=== PATIENT | female | born 1975 | race Caucasian/White ===

== ENCOUNTER 2017-08-10 19:09 | Emergency (ER) | payer OTHER ==
[2017-08-10] MEDS ORDERED: SODIUM CHLORIDE 0.9% 1,000 ML IV STA (21:53)
[2017-08-10] MEDS ORDERED: ONDANSETRON 4 MG/2 ML VIAL IVP STA (21:53)
[2017-08-10] MEDS ORDERED: KETOROLAC 30 MG/ML 1 ML VIAL IVP STA (21:53)
[2017-08-10] MEDS ORDERED: HYDROmorphone 2 MG/ML 1 ML SYRINGE IVP STA (21:53)
--- NOTE | 2017-08-10 21:56 | ED ---
General Adult HPI - General Chief complaint: Urogenital Stated complaint: Abdominal pain Time Seen by Provider: 08/10/17 21:40 Source: patient Mode of arrival: ambulatory Limitations: no limitations - History of Present Illness Initial comments: 42-year-old female patient presents to the emergency department today for evaluation of right flank and right lower quadrant abdominal pain. Patient states that she has had this pain for the last few hours. Patient states that she does have a known history of kidney stones and did pass 2 small stones proximal 0.3-4 days ago. States that she is pain-free for 2 days and started to have this pain here today. States that she is having decreased urine output. She denies any current hematuria. States that she is nauseated with this. States that she did take ibuprofen around 5 PM and this did not help her pain. States that she has increased her water and cranberry juice intake without relief of symptoms. Patient states that she does take Percocet for pain at home. Take she is taking probenecid to help decrease kidney stone production. Patient denies any recent rash, fever, chills, shortness breath, chest pain, vomiting, diarrhea, constipation, back pain, numbness, tingling, dizziness, weakness, dysuria, urinary urgency, urinary frequency, headache, visual changes, or any other complaints. - Related Data Home Medications Medication Instructions Recorded Confirmed ALPRAZolam [Xanax] 1 - 2 mg PO TID PRN 06/20/14 08/10/17 QUEtiapine [SEROquel] 25 mg PO HS 10/15/15 08/10/17 HYDROcodone/APAP 10-325MG [[place] 1 tab PO DIRECTED PRN 08/10/17 08/10/17 10-325] Ibuprofen [Motrin] 800 mg PO Q8H PRN 08/10/17 08/10/17 Probenecid [Benemid] 500 mg PO DAILY 08/10/17 08/10/17 oxyCODONE-APAP 10-325MG [Percocet 1 tab PO DIRECTED PRN 08/10/17 08/10/17 10-325 mg] Previous Rx's Medication Instructions Recorded Ondansetron [Zofran ODT] 4 mg PO Q8HR PRN #10 tab 08/10/17 Tamsulosin HCl [Flomax] 0.4 mg PO DAILY #7 cap 08/10/17 Allergies Allergy/AdvReac Type Severity Reaction Status Date / Time amoxicillin trihydrate Allergy Rash/Hives Verified 08/10/17 22:14 [From Trimox] grape Allergy Rash/Hives Verified 08/10/17 22:14 purple dye Allergy Rash/Hives Uncoded 08/10/17 19:52 root beer Allergy Rash/Hives Uncoded 08/10/17 19:52 Review of Systems ROS Statement: Those systems with pertinent positive or pertinent negative responses have been documented in the HPI. ROS Other: All systems not noted in ROS Statement are negative. Past Medical History Past Medical History: Cancer Additional Past Medical History / Comment(s): CERVICAL CANCER, MIGRAINE, HEAVY PERIODS, FREQUENT, kidney stones History of Any Multi-Drug Resistant Organisms: None Reported Past Surgical History: Tubal Ligation Additional Past Surgical History / Comment(s): CERVIX SURGERY FOR CANCER - LASER X3 Past Anesthesia/Blood Transfusion Reactions: No Reported Reaction Past Psychological History: Anxiety, Depression Smoking Status: Current some day smoker Past Alcohol Use History: None Reported Past Drug Use History: None Reported - Past Family History Mother Family Medical History: No Reported History General Exam Limitations: no limitations General appearance: alert, in no apparent distress, other (Physical well- developed, well-nourished adult female patient in no acute distress. Vital signs upon presentation are temperature 98.5F, pulse 97, respirations 20, blood pressure 130/97, pulse ox 98% on room air.) Eye exam: Present: normal appearance, PERRL, EOMI. Absent: scleral icterus, conjunctival injection, periorbital swelling ENT exam: Present: normal exam, normal oropharynx, mucous membranes moist Neck exam: Present: normal inspection. Absent: tenderness, meningismus, lymphadenopathy Respiratory exam: Present: normal lung sounds bilaterally. Absent: respiratory distress, wheezes, rales, rhonchi, stridor Cardiovascular Exam: Present: regular rate, normal rhythm, normal heart sounds. Absent: systolic murmur, diastolic murmur, rubs, gallop, clicks GI/Abdominal exam: Present: soft, normal bowel sounds. Absent: distended, tenderness, guarding, rebound, rigid Back exam: Present: normal inspection, CVA tenderness (R). Absent: CVA tenderness (L) Neurological exam: Present: alert, oriented X3, CN II-XII intact Psychiatric exam: Present: normal affect, normal mood Skin exam: Present: warm, dry, intact, normal color. Absent: rash Course Vital Signs 08/10/17 08/10/17 19:49 23:27 Temperature 98.5 F 98.8 F Pulse Rate 97 96 Respiratory 20 16 Rate Blood Pressure 138/97 133/90 O2 Sat by Pulse 98 100 Oximetry Medical Decision Making - Medical Decision Making 42-year-old female patient presents to the emergency department today for complaints of right flank pain. Patient does have a past medical history significant for kidney stones. She states this feels similar to her previous episodes. She states a couple days ago she passed 2 stones. Physical examination today reveals right flank tenderness, however no abdominal tenderness. Labs reviewed and did show mild elevation of the creatinine at 1.10. She did have trace blood in her urine. Findings are consistent with kidney stone. She'll be given a prescription for Flomax and Zofran. She does have Percocet at home to take. She is instructed to follow-up with urology and her primary care physician for recheck in 1-2 days. She is instructed to have a repeat CMP performed in 1-2 days. She is instructed to increase fluids. She is instructed to return here immediately for any new, worsening, or concerning symptoms. She verbalizes understanding and agrees with this plan. - Lab Data Result diagrams: 08/10/17 21:59 08/10/17 21:59 Lab Results 08/10/17 08/10/17 08/10/17 Range/Units 21:59 21:59 21:59 WBC 7.7 (3.8-10.6) k/uL RBC 3.91 (3.80-5.40) m/uL Hgb 12.9 (11.4-16.0) gm/dL Hct 37.7 (34.0-46.0) % MCV 96.4 (80.0-100.0) fL MCH 33.1 (25.0-35.0) pg MCHC 34.3 (31.0-37.0) g/dL RDW 13.2 (11.5-15.5) % Plt Count 292 (150-450) k/uL Neutrophils % 60 % Lymphocytes % 29 % Monocytes % 6 % Eosinophils % 3 % Basophils % 0 % Neutrophils # 4.6 (1.3-7.7) k/uL Lymphocytes # 2.2 (1.0-4.8) k/uL Monocytes # 0.5 (0-1.0) k/uL Eosinophils # 0.2 (0-0.7) k/uL Basophils # 0.0 (0-0.2) k/uL Sodium 140 (137-145) mmol/L Potassium 4.0 (3.5-5.1) mmol/L Chloride 105 (98-107) mmol/L Carbon Dioxide 25 (22-30) mmol/L Anion Gap 10 mmol/L BUN 13 (7-17) mg/dL Creatinine 1.10 H (0.52-1.04) mg/dL Est GFR (MDRD) Af Amer >60 (>60 ml/min/1.73 sqM) Est GFR (MDRD) Non-Af 55 (>60 ml/min/1.73 sqM) Glucose 88 (74-99) mg/dL Calcium 10.2 (8.4-10.2) mg/dL Total Bilirubin 0.3 (0.2-1.3) mg/dL AST 16 (14-36) U/L ALT 28 (9-52) U/L Alkaline Phosphatase 82 (38-126) U/L Total Protein 6.7 (6.3-8.2) g/dL Albumin 4.2 (3.5-5.0) g/dL Amylase 38 (30-110) U/L Lipase 102 (23-300) U/L Urine Color Colorless Urine Appearance Clear (Clear) Urine pH 7.0 (5.0-8.0) Ur Specific [place] 1.002 (1.001-1.035) Urine Protein Negative (Negative) Urine Glucose (UA) Negative (Negative) Urine Ketones Negative (Negative) Urine Blood Trace H (Negative) Urine Nitrite Negative (Negative) Urine Bilirubin Negative (Negative) Urine Urobilinogen <2.0 (<2.0) mg/dL Ur Leukocyte Esterase Negative (Negative) Urine WBC 1 (0-5) /hpf Ur Squamous Epith Cells <1 (0-4) /hpf Urine Mucus Rare H (None) /hpf - Radiology Data Radiology results: report reviewed, image reviewed 2 views of the abdomen showed no sign of intestinal obstruction or pneumoperitoneum. Fecal pattern is normal. Lung bases are clear. There are no pathologic calcifications over the right kidney. There is a small 2-3 mm calcifications over the lower pole of the left kidney. There is no evidence of a mass. Impression by Dr. Crouch shows possible left renal calcification. Nonacute abdomen. No change. Disposition Clinical Impression: Kidney stone Disposition: HOME SELF-CARE Condition: Good Instructions: Kidney Stones (ED) Additional Instructions: Return for repeat labs in 2-3 days. Increase fluids. Take medications as directed. Follow-up with your primary care physician and the urologist for further evaluation. Return here immediately for any new, worsening, or concerning symptoms. Prescriptions: Ondansetron [Zofran ODT] 4 mg PO Q8HR PRN #10 tab PRN Reason: Nausea Tamsulosin HCl [Flomax] 0.4 mg PO DAILY #7 cap Referrals: Luis Hernández DO [Primary Care Provider] - 1-2 days Justin Sommer MD [STAFF PHYSICIAN] - 1-2 days Time of Disposition: 23:15
[2017-08-10 22:26] LABS: Basophils % (A) 0 %; Eosinophils # (A) 0.2 k/uL (0-0.7); Eosinophils % (A) 3 %; HCT 37.7 % (34.0-46.0); HGB 12.9 gm/dL (11.4-16.0); Lymphocytes # (A) 2.2 k/uL (1.0-4.8); Lymphocytes % (A) 29 %; MCH 33.1 pg (25.0-35.0); MCHC 34.3 g/dL (31.0-37.0); MCV 96.4 fL (80.0-100.0); Mean Platelet Volume 7.8; Monocytes # (A) 0.5 k/uL (0-1.0); Monocytes % (A) 6 %; Neutrophils # (A) 4.6 k/uL (1.3-7.7); Neutrophils % (A) 60 %; Platelet Count 292 k/uL (150-450); RBC 3.91 m/uL (3.80-5.40); RDW 13.2 % (11.5-15.5); WBC 7.7 k/uL (3.8-10.6)
[2017-08-10 22:32] LABS: Appearance,Urine Clear (Clear); Bilirubin,Urine Negative (Negative); Blood,Urine Trace (Negative); Color,Urine Colorless; Glucose,Urine (UA) Negative (Negative); Ketones,Urine Negative (Negative); Leukocyte Esterase,Urine Negative (Negative); Mucus,Urine Rare /hpf; Nitrite,Urine Negative (Negative); Protein,Urine Negative (Negative); Specific Gravity,Urine 1.002 (1.001-1.035); Squamous Epithelial Cell,Urine <1 /hpf (0-4); Urobilinogen,Urine <2.0 mg/dL (<2.0); WBC,Urine 1 /hpf (0-5)
--- NOTE | 2017-08-10 22:35 | XR ---
EXAMINATION TYPE: XR KUB DATE OF EXAM: 08/10/2017 COMPARISON: 08/15/2015 HISTORY: Abdominal pain TECHNIQUE: 2 views FINDINGS: There is no sign of intestinal obstruction or pneumoperitoneum. Fecal pattern is normal. Madhuri ng bases are clear. There are no pathologic calcifications over the right kidney. There is small 2 to 3 mm calcification over lower pole left kidney. There is no evidence of a mass. IMPRESSION: Possible left renal calcification. Nonacute abdomen. No change.
[2017-08-10 22:37] LABS: ALT 28 U/L (9-52); AST 16 U/L (14-36); Albumin 4.2 g/dL (3.5-5.0); Alkaline Phosphatase 82 U/L (38-126); Amylase 38 U/L (30-110); Anion Gap 10 mmol/L; Blood Urea Nitrogen 13 mg/dL (7-17); Calcium 10.2 mg/dL (8.4-10.2); Carbon Dioxide 25 mmol/L (22-30); Chloride 105 mmol/L (98-107); Glucose 88 mg/dL (74-99); Lipase 102 U/L (23-300); Sodium 140 mmol/L (137-145); Total Bilirubin 0.3 mg/dL (0.2-1.3); Total Protein 6.7 g/dL (6.3-8.2)
[2017-08-10 23:28] VITALS: BP 133/90; PULSE 96; RESP 16; TEMP 98.8
== END 2017-08-10 23:28 | disposition home or self-care (01) ==
LOC: EC 19:09
DX: N20.0 Calculus of kidney (principal); F32.9 Major depressive disorder, single episode, unspecified; F17.200 Nicotine dependence, unspecified, uncomplicated; Z79.899 Other long term (current) drug therapy; Z88.0 Allergy status to penicillin; Z91.018 Allergy to other foods; Z91.048 Other nonmedicinal substance allergy status; Z85.41 Personal history of malignant neoplasm of cervix uteri; Z98.890 Other specified postprocedural states
CPT/HCPCS: 36415; 80053; 82150; 83690; 85025; 81001; 74018; 99284; 96374; 96375 ×2; 96361; J1170; J2405; J1885

== ENCOUNTER → 2017-08-12 | Outpatient (CLI) | payer OTHER ==
[2017-08-12 13:29] LABS: Blood Urea Nitrogen 9 mg/dL (7-17)
== END | disposition home or self-care (01) ==
LOC: LABWHC1 12:46
PROVIDERS: ATTEND Nurse Practitioner
DX: R10.9 Unspecified abdominal pain (principal)
CPT/HCPCS: 36415; 82565; 84520

== ENCOUNTER → 2017-09-08 | Outpatient (CLI) | payer OTHER ==
--- NOTE | 2017-09-08 12:01 | CT ---
EXAMINATION TYPE: CT abdomen pelvis wo con DATE OF EXAM: 09/08/2017 COMPARISON: 11/25/2015 HISTORY: Flank pain bilaterally left greater than right CT DLP: 234.4 mGycm Automated exposure control for dose reduction was used. TECHNIQUE: Helical acquisition of images was performed from the lung bases through the pelvis. FINDINGS: LUNG BASES: No significant abnormality is appreciated. LIVER/GB: No significant abnormality is appreciated. No radiopaque calculi. PANCREAS: No significant abnormality is seen. No ductal dilatation. SPLEEN: No significant abnormality is seen. No splenomegaly. ADRENALS: No significant abnormality is seen. No thickening or nodularity. KIDNEYS: There are at least 3 1 to 2 mm right renal calculi and at least 3 1 to 2 mm left upper pole renal calculi as well as left lower pole 6 mm calculus and 2 mm calculus. There is no evidence of hyd ronephrosis or calculi within the course of the ureters or within the urinary bladder. No calculi are seen along the course of the urethra. 2.0 cm left renal cyst is again noted. The previously seen 4 mm calculus at the left ureter vesicular junction has passed in the interim. FREE AIR: No free air is visualized REPRODUCTIVE ORGANS: The uterus appears surgically absent. URINARY BLADDER: No significant abnormality is seen. Incompletely distended. ADENOPATHY: No greater than 1 cm short axis lymph nodes are seen within the abdomen or pelvis. OSSEOUS STRUCTURES: Punctate sclerotic foci are seen within the left femoral head and ischium, likel y bone islands. Osseous structures appear intact. BOWEL: Numerous colonic diverticula are seen without pericolonic fat stranding. No evidence of focal bowel dilatation. IMPRESSION: 1. INTERVAL PASSAGE OF THE PREVIOUSLY SEEN OBSTRUCTING LEFT URETERAL CALCULUS JUNCTION. NO CURRENT EV IDENCE OF HYDRONEPHROSIS OR OBSTRUCTIVE UROPATHY. 2. BILATERAL NONOBSTRUCTING RENAL CALCULI. 3. LEFT RENAL CYST.
== END | disposition home or self-care (01) ==
LOC: RADCTMAIN 08:56
PROVIDERS: ATTEND Urology
DX: N20.2 Calculus of kidney with calculus of ureter (principal); N28.1 Cyst of kidney, acquired
CPT/HCPCS: 74176

== ENCOUNTER 2018-07-17 15:40 | Emergency (ER) | payer OTHER ==
[2018-07-17] MEDS ORDERED: SODIUM CHLORIDE 0.9% 1,000 ML IV STA (15:58)
[2018-07-17] MEDS ORDERED: KETOROLAC 30 MG/ML 1 ML VIAL IVP STA (15:58)
[2018-07-17] MEDS ORDERED: METOCLOPRAMIDE 5 MG/ML 2 ML VIAL IVP STA (15:58)
--- NOTE | 2018-07-17 16:00 | ED ---
General Adult HPI - General Chief complaint: Abdominal Pain Stated complaint: Abd pain Time Seen by Provider: 07/17/18 15:52 Source: patient, family, RN notes reviewed Mode of arrival: wheelchair Limitations: no limitations - History of Present Illness Initial comments: Patient is a pleasant 43-year-old female presenting to the emergency Department with complaints of right flank pain. Onset of symptoms was last night. Symptoms worsened around 9:30 this morning. Discomfort is starting to become severe. Discomfort is right side of the abdomen, more lower. Patient has had similar symptoms multiple times previously associated with kidney stones. Patient usually gets kidney stones around once a year. No dysuria or hematuria. Patient has had some mild loose stools. No constipation. Patient has had some nausea without vomiting. No fever. - Related Data Home Medications Medication Instructions Recorded Confirmed ALPRAZolam [Xanax] 1 - 2 mg PO TID PRN 06/20/14 07/17/18 Ibuprofen [Motrin] 800 mg PO Q8H PRN 08/10/17 07/17/18 Ascorbic Acid [Vitamin C] 1,000 mg PO DAILY 07/17/18 07/17/18 Cider Vinegar [Apple Cider Vinegar] 1 tab PO DAILY 07/17/18 07/17/18 Cyanocobalamin (Vitamin B-12) 1,000 mcg PO DAILY 07/17/18 07/17/18 [Vitamin B-12] Dextroamphetamine/Amphetamine 20 mg PO BID 07/17/18 07/17/18 [Dextroamp-Amphetamin 20 mg Tab] Garcinia Cambogia 1 tab PO DAILY 07/17/18 07/17/18 Allergies Allergy/AdvReac Type Severity Reaction Status Date / Time amoxicillin trihydrate Allergy Rash/Hives Verified 07/17/18 16:10 [From Trimox] grape Allergy Rash/Hives Verified 07/17/18 16:10 purple dye Allergy Rash/Hives Uncoded 07/17/18 15:47 root beer Allergy Rash/Hives Uncoded 07/17/18 15:47 Review of Systems ROS Statement: Those systems with pertinent positive or pertinent negative responses have been documented in the HPI. ROS Other: All systems not noted in ROS Statement are negative. Constitutional: Denies: fever, chills Eyes: Denies: eye pain ENT: Denies: ear pain Respiratory: Denies: cough Cardiovascular: Denies: chest pain Endocrine: Denies: fatigue Gastrointestinal: Reports: abdominal pain, nausea. Denies: vomiting Genitourinary: Denies: dysuria, hematuria Musculoskeletal: Denies: arthralgia Skin: Denies: rash Neurological: Denies: weakness Past Medical History Past Medical History: Cancer Additional Past Medical History / Comment(s): CERVICAL CANCER, MIGRAINE, HEAVY PERIODS, FREQUENT, kidney stones History of Any Multi-Drug Resistant Organisms: None Reported Past Surgical History: Tubal Ligation Additional Past Surgical History / Comment(s): CERVIX SURGERY FOR CANCER - LASER X3 Past Anesthesia/Blood Transfusion Reactions: No Reported Reaction Past Psychological History: Anxiety, Depression Smoking Status: Current every day smoker Past Alcohol Use History: None Reported Past Drug Use History: None Reported - Past Family History Mother Family Medical History: No Reported History General Exam Limitations: no limitations General appearance: alert, in no apparent distress Head exam: Present: atraumatic Eye exam: Present: normal appearance, PERRL ENT exam: Present: normal oropharynx Neck exam: Present: normal inspection Respiratory exam: Present: normal lung sounds bilaterally Cardiovascular Exam: Present: regular rate, normal rhythm Expanded Peripheral pulses: 2+: Dorsalis Pedis (R), Dorsalis Pedis (L) GI/Abdominal exam: Present: soft, tenderness (Moderate tenderness right side of the abdomen), normal bowel sounds. Absent: distended, rebound, rigid, pulsatile mass Extremities exam: Present: normal inspection. Absent: pedal edema, calf tenderness Back exam: Present: CVA tenderness (R) Neurological exam: Present: alert Psychiatric exam: Present: normal affect, normal mood Skin exam: Present: normal color Course Vital Signs 07/17/18 15:44 Temperature 97.7 F Pulse Rate 64 Respiratory 20 Rate Blood Pressure 132/68 O2 Sat by Pulse 99 Oximetry Medical Decision Making - Medical Decision Making Patient reevaluated and resting comfortably in bed. Patient states discomfort is only very mild at this time. Patient updated on results and need for follow- up. - Lab Data Result diagrams: 07/17/18 16:45 07/17/18 16:45 Lab Results 07/17/18 07/17/18 07/17/18 Range/Units 16:45 16:45 16:45 WBC 11.2 H (3.8-10.6) k/uL RBC 3.72 L (3.80-5.40) m/uL Hgb 12.7 (11.4-16.0) gm/dL Hct 37.0 (34.0-46.0) % MCV 99.6 (80.0-100.0) fL MCH 34.1 (25.0-35.0) pg MCHC 34.3 (31.0-37.0) g/dL RDW 12.5 (11.5-15.5) % Plt Count 279 (150-450) k/uL Neutrophils % 79 % Lymphocytes % 15 % Monocytes % 4 % Eosinophils % 1 % Basophils % 0 % Neutrophils # 8.9 H (1.3-7.7) k/uL Lymphocytes # 1.7 (1.0-4.8) k/uL Monocytes # 0.4 (0-1.0) k/uL Eosinophils # 0.1 (0-0.7) k/uL Basophils # 0.0 (0-0.2) k/uL PT 10.2 (9.0-12.0) sec INR 0.9 (<1.2) APTT 26.4 (22.0-30.0) sec Sodium 140 (137-145) mmol/L Potassium 3.7 (3.5-5.1) mmol/L Chloride 106 (98-107) mmol/L Carbon Dioxide 27 (22-30) mmol/L Anion Gap 7 mmol/L BUN 7 (7-17) mg/dL Creatinine 0.63 (0.52-1.04) mg/dL Est GFR (CKD-EPI)AfAm >90 (>60 ml/min/1.73 sqM) Est GFR (CKD-EPI)NonAf >90 (>60 ml/min/1.73 sqM) Glucose 92 (74-99) mg/dL Calcium 9.9 (8.4-10.2) mg/dL Total Bilirubin 0.3 (0.2-1.3) mg/dL AST 14 (14-36) U/L ALT 21 (9-52) U/L Alkaline Phosphatase 100 (38-126) U/L Total Protein 6.5 (6.3-8.2) g/dL Albumin 4.0 (3.5-5.0) g/dL Amylase 35 (30-110) U/L Lipase 68 (23-300) U/L - Radiology Data Radiology results: report reviewed (Computed tomography scan of abdomen and pelvis shows probable distal ureteral calculi. Moderate right-sided hydronephrosis and hydroureter), image reviewed (KUB shows no acute process) Disposition Clinical Impression: Ureterolithiasis Disposition: HOME SELF-CARE Condition: Stable Instructions: Kidney Stones (ED) Additional Instructions: Please follow-up with primary care physician in the next couple of days for recheck. Return for increased pain, fevers, worsening or change in symptoms, or other concerns. Is patient prescribed a controlled substance at d/c from ED?: No Referrals: Luis Hernández DO [Primary Care Provider] - 1-2 days Time of Disposition: 18:01
[2018-07-17 17:20] LABS: Basophils % (A) 0 %; Eosinophils # (A) 0.1 k/uL (0-0.7); Eosinophils % (A) 1 %; HGB 12.7 gm/dL (11.4-16.0); Lymphocytes # (A) 1.7 k/uL (1.0-4.8); Lymphocytes % (A) 15 %; MCH 34.1 pg (25.0-35.0); MCHC 34.3 g/dL (31.0-37.0); MCV 99.6 fL (80.0-100.0); Mean Platelet Volume 6.9; Monocytes # (A) 0.4 k/uL (0-1.0); Monocytes % (A) 4 %; Neutrophils # (A) 8.9 k/uL (1.3-7.7); Neutrophils % (A) 79 %; Platelet Count 279 k/uL (150-450); RBC 3.72 m/uL (3.80-5.40); RDW 12.5 % (11.5-15.5); WBC 11.2 k/uL (3.8-10.6)
--- NOTE | 2018-07-17 17:26 | XR ---
EXAMINATION TYPE: XR KUB DATE OF EXAM: 07/17/2018 COMPARISON: 08/10/2017 HISTORY: Abdominal pain TECHNIQUE: 2 views upright FINDINGS: There is no sign of intestinal obstruction or pneumoperitoneum. Fecal pattern is normal. Madhuri ng bases are clear. There are small calcifications over the lower pole left kidney IMPRESSION: Nonacute abdomen. Small calcifications over the lower pole left kidney unchanged.
--- NOTE | 2018-07-17 17:35 | CT ---
EXAMINATION TYPE: CT abdomen pelvis wo con DATE OF EXAM: 07/17/2018 COMPARISON: 09/08/2017 HISTORY: Right flank pain, hx of kidney stones CT DLP: 269.3 mGycm Automated exposure control for dose reduction was used. TECHNIQUE: Helical acquisition of images was performed from the lung bases through the pelvis. FINDINGS: Lung bases are clear of infiltrate. There is no pleural effusion. Heart size is normal. There is no p ericardial effusion. Liver spleen pancreas gallbladder appear normal. Bile ducts are not dilated. There is no adrenal mass . Kidneys of normal size. There is moderate right-sided hydronephrosis. There are multiple bilateral renal calculi. These measure up to 6 mm. There is 2 cm cortical cyst anterior left kidney. There is 2 cm cortical cyst lower pole left kidney. There is right-sided hydroureter. There are multiple calcif ications in the pelvis laterally on the right side. Most of these are phleboliths. There is probably a stone in the distal right ureter. evaluation of the right ureter is difficult with lack of contr ast and intraperitoneal fat.. There are phleboliths in the pelvis. The lumbar spine is intact. Bony pelvis is intact. there is no evidence of a bowel obstruction. There is no inguinal hernia. There is no evidence of a pelvic mass. There is no mesenteric edema or a denopathy. IMPRESSION: THERE IS MODERATE RIGHT-SIDED HYDRONEPHROSIS AND HYDROURETER. THERE IS PROBABLY OBSTRUCTING STONE IN THE DISTAL RIGHT URETER. OBSTRUCTION IS NEW COMPARED TO OLD EXAM. NUMEROUS BILATERAL RENAL CALCULI.
[2018-07-17 17:39] LABS: ALT 21 U/L (9-52); AST 14 U/L (14-36); Alkaline Phosphatase 100 U/L (38-126); Amylase 35 U/L (30-110); Anion Gap 7 mmol/L; Blood Urea Nitrogen 7 mg/dL (7-17); Calcium 9.9 mg/dL (8.4-10.2); Carbon Dioxide 27 mmol/L (22-30); Chloride 106 mmol/L (98-107); Glucose 92 mg/dL (74-99); Lipase 68 U/L (23-300); Potassium 3.7 mmol/L (3.5-5.1); Sodium 140 mmol/L (137-145); Total Bilirubin 0.3 mg/dL (0.2-1.3); Total Protein 6.5 g/dL (6.3-8.2)
[2018-07-17 17:43] LABS: INR 0.9 (<1.2); Partial Thromboplastin Time 26.4 sec (22.0-30.0); Prothrombin Time 10.2 sec (9.0-12.0)
[2018-07-17 18:18] VITALS: BP 126/79; PULSE 62; RESP 18; TEMP 98.5
[2018-07-17 18:38] LABS: Amorphous Sediment,Urine Rare /hpf; Appearance,Urine Cloudy (Clear); Bacteria,Urine Many /hpf; Bilirubin,Urine Negative (Negative); Blood,Urine Moderate (Negative); Color,Urine Yellow; Glucose,Urine (UA) Negative (Negative); Ketones,Urine Negative (Negative); Leukocyte Esterase,Urine Large (Negative); Mucus,Urine Few /hpf; Nitrite,Urine Positive (Negative); PH, Urine 6.5 (5.0-8.0); Protein,Urine Trace (Negative); RBC,Urine 81 /hpf (0-5); Squamous Epithelial Cell,Urine 2 /hpf (0-4); Urobilinogen,Urine <2.0 mg/dL (<2.0); WBC,Urine 64 /hpf (0-5)
== END 2018-07-17 18:08 | disposition home or self-care (01) ==
LOC: EC 15:40
DX: N20.1 Calculus of ureter (principal); R19.5 Other fecal abnormalities; F32.9 Major depressive disorder, single episode, unspecified; F41.9 Anxiety disorder, unspecified; F17.200 Nicotine dependence, unspecified, uncomplicated; Z85.41 Personal history of malignant neoplasm of cervix uteri; Z79.899 Other long term (current) drug therapy; Z88.0 Allergy status to penicillin; Z91.018 Allergy to other foods; Z91.09 Other allergy status, other than to drugs and biological substances
CPT/HCPCS: 36415; 80053; 82150; 83690; 85025; 85610; 85730; 81001; 74018; 74176; 99284; 96374; 96375; 96361; J2765; J1885

== ENCOUNTER 2018-07-23 14:35 | Emergency (ER) | payer OTHER ==
[2018-07-23 15:54] LABS: Appearance,Urine Cloudy (Clear); Color,Urine Yellow
[2018-07-23 15:55] LABS: Bacteria,Urine Many /hpf; Bilirubin,Urine Negative (Negative); Blood,Urine Large (Negative); Budding Yeast,Urine Few /hpf; Glucose,Urine (UA) Negative (Negative); Ketones,Urine 1+ (Negative); Leukocyte Esterase,Urine Large (Negative); Mucus,Urine Rare /hpf; Nitrite,Urine Positive (Negative); Protein,Urine 2+ (Negative); RBC,Urine 134 /hpf (0-5); Specific Gravity,Urine 1.011 (1.001-1.035); WBC,Urine 55 /hpf (0-5)
[2018-07-23] MEDS ORDERED: PANTOPRAZOLE 40 MG/10 ML VIAL IVP STA (16:00)
[2018-07-23] MEDS ORDERED: SODIUM CHLORIDE 0.9% 500 ML 500 ML IV STA (16:00)
[2018-07-23] MEDS ORDERED: HYDROmorphone 1 MG/ML 1 ML SYRINGE IVP STA (16:00)
[2018-07-23] MEDS ORDERED: SODIUM CHLORIDE 0.9% 1,000 ML IV STA ×2 (16:00)
[2018-07-23] MEDS ORDERED: ONDANSETRON 4 MG/2 ML VIAL IVP STA (16:00)
[2018-07-23] MEDS ORDERED: KETOROLAC 30 MG/ML 1 ML VIAL IVP STA (16:00)
--- NOTE | 2018-07-23 16:17 | ED ---
Abdominal Pain HPI - General Chief Complaint: Back Pain/Injury Stated Complaint: Kidney stones Time Seen by Provider: 07/23/18 15:21 Source: patient, RN notes reviewed, old records reviewed Mode of arrival: wheelchair Limitations: no limitations - History of Present Illness Initial Comments: This is a 43-year-old female the ER for evaluation. Patient has no history of kidney stones coming of kidney stones and pain flank pain nausea and vomiting. Abdominal pain. Dysuria as well as hematuria. Patient again states she has history of kidney stones. This seen multiple times for recent evaluation of stones. Patient states she did just. Passes to upon arrival to the hospital. Denies any other complaints MD Complaint: abdominal pain, flank pain (Right flank pain) -: days(s) Location: RLQ, R flank Radiation: RLQ, back Migration to: suprapubic Severity: moderate Severity scale (1-10): 7 Quality: sharp Consistency: constant Improves With: medication Worsens With: nothing Associated Symptoms: nausea, vomiting Treatments Prior to Arrival: NSAIDs, prescription analgesics - Related Data Home Medications Medication Instructions Recorded Confirmed ALPRAZolam [Xanax] 2 mg PO TID PRN 06/20/14 07/23/18 Dextroamphetamine/Amphetamine 20 mg PO BID 07/17/18 07/23/18 [Dextroamp-Amphetamin 20 mg Tab] Allergies Allergy/AdvReac Type Severity Reaction Status Date / Time amoxicillin trihydrate Allergy Rash/Hives Verified 07/23/18 15:26 [From Trimox] grape Allergy Rash/Hives Verified 07/23/18 15:26 purple dye Allergy Rash/Hives Uncoded 07/23/18 14:53 root beer Allergy Rash/Hives Uncoded 07/23/18 14:53 Review of Systems ROS Statement: Those systems with pertinent positive or pertinent negative responses have been documented in the HPI. ROS Other: All systems not noted in ROS Statement are negative. Past Medical History Past Medical History: Cancer Additional Past Medical History / Comment(s): CERVICAL CANCER, MIGRAINE, HEAVY PERIODS, FREQUENT, kidney stones History of Any Multi-Drug Resistant Organisms: None Reported Past Surgical History: Tubal Ligation Additional Past Surgical History / Comment(s): CERVIX SURGERY FOR CANCER - LASER X3 Past Anesthesia/Blood Transfusion Reactions: No Reported Reaction Past Psychological History: Anxiety, Depression Smoking Status: Current every day smoker Past Alcohol Use History: None Reported Past Drug Use History: None Reported - Past Family History Mother Family Medical History: No Reported History General Exam Limitations: no limitations General appearance: alert, in no apparent distress, anxious Head exam: Present: atraumatic, normocephalic, normal inspection Eye exam: Present: normal appearance, PERRL, EOMI. Absent: scleral icterus, conjunctival injection, periorbital swelling ENT exam: Present: normal exam, mucous membranes moist Neck exam: Present: normal inspection. Absent: tenderness, meningismus, lymphadenopathy Respiratory exam: Present: normal lung sounds bilaterally. Absent: respiratory distress, wheezes, rales, rhonchi, stridor Cardiovascular Exam: Present: regular rate, normal rhythm, normal heart sounds. Absent: systolic murmur, diastolic murmur, rubs, gallop, clicks GI/Abdominal exam: Present: soft, normal bowel sounds. Absent: distended, tenderness, guarding, rebound, rigid Extremities exam: Present: normal inspection, full ROM, normal capillary refill. Absent: tenderness, pedal edema, joint swelling, calf tenderness Back exam: Present: normal inspection Neurological exam: Present: alert, oriented X3, CN II-XII intact Psychiatric exam: Present: normal affect, normal mood Skin exam: Present: warm, dry, intact, normal color. Absent: rash Course Vital Signs 07/23/18 07/23/18 07/23/18 14:49 16:33 17:50 Temperature 99.8 F H Pulse Rate 124 H 87 84 Respiratory 20 18 18 Rate Blood Pressure 159/93 106/68 105/64 O2 Sat by Pulse 99 98 98 Oximetry - Reevaluation(s) Reevaluation #1: 07/23/18 18:36 Medical record is reviewed Reevaluation #2: 07/23/18 18:36 Patient has adequate pain control currently spoke at length with need to take antibiotics, patient agreeable, patient can be discharged home Medical Decision Making - Medical Decision Making 43 female the ER for evaluation. Patient was essay for evaluation of pain flank pain. Patient has positive UTI pyelonephritis likely, no fever no white count patient is tolerate oral intake and can be discharged home - Lab Data Result diagrams: 07/23/18 16:25 07/23/18 16:25 Lab Results 07/23/18 07/23/18 07/23/18 Range/Units 15:15 15:15 16:25 WBC (3.8-10.6) k/uL RBC (3.80-5.40) m/uL Hgb (11.4-16.0) gm/dL Hct (34.0-46.0) % MCV (80.0-100.0) fL MCH (25.0-35.0) pg MCHC (31.0-37.0) g/dL RDW (11.5-15.5) % Plt Count (150-450) k/uL Neutrophils % % Lymphocytes % % Monocytes % % Eosinophils % % Basophils % % Neutrophils # (1.3-7.7) k/uL Lymphocytes # (1.0-4.8) k/uL Monocytes # (0-1.0) k/uL Eosinophils # (0-0.7) k/uL Basophils # (0-0.2) k/uL Sodium 131 L (137-145) mmol/L Potassium 2.9 L (3.5-5.1) mmol/L Chloride 102 (98-107) mmol/L Carbon Dioxide 22 (22-30) mmol/L Anion Gap 7 mmol/L BUN 18 H (7-17) mg/dL Creatinine 0.79 (0.52-1.04) mg/dL Est GFR (CKD-EPI)AfAm >90 (>60 ml/min/1.73 sqM) Est GFR (CKD-EPI)NonAf >90 (>60 ml/min/1.73 sqM) Glucose 104 H (74-99) mg/dL Calcium 8.7 (8.4-10.2) mg/dL Magnesium (1.6-2.3) mg/dL Total Bilirubin 1.3 (0.2-1.3) mg/dL AST 19 (14-36) U/L ALT 27 (9-52) U/L Alkaline Phosphatase 99 (38-126) U/L Total Protein 5.4 L (6.3-8.2) g/dL Albumin 2.8 L (3.5-5.0) g/dL Amylase <30 L (30-110) U/L Lipase 61 (23-300) U/L Urine Color Yellow Urine Appearance Cloudy H (Clear) Urine pH 7.0 (5.0-8.0) Ur Specific [place] 1.011 (1.001-1.035) Urine Protein 2+ H (Negative) Urine Glucose (UA) Negative (Negative) Urine Ketones 1+ H (Negative) Urine Blood Large H (Negative) Urine Nitrite Positive H (Negative) Urine Bilirubin Negative (Negative) Urine Urobilinogen 8.0 (<2.0) mg/dL Ur Leukocyte Esterase Large H (Negative) Urine RBC 134 H (0-5) /hpf Urine WBC 55 H (0-5) /hpf Urine WBC Clumps Moderate H (None) /hpf Urine Bacteria Many H (None) /hpf Urine Mucus Rare H (None) /hpf Urine Yeast (Budding) Few H (None) /hpf Urine HCG, Qual Not Detected (Not Detectd) 07/23/18 07/23/18 Range/Units 16:25 16:25 WBC 9.0 (3.8-10.6) k/uL RBC 3.72 L (3.80-5.40) m/uL Hgb 12.3 (11.4-16.0) gm/dL Hct 35.8 (34.0-46.0) % MCV 96.2 (80.0-100.0) fL MCH 33.1 (25.0-35.0) pg MCHC 34.4 (31.0-37.0) g/dL RDW 12.6 (11.5-15.5) % Plt Count 122 L D (150-450) k/uL Neutrophils % 91 % Lymphocytes % 4 % Monocytes % 3 % Eosinophils % 1 % Basophils % 0 % Neutrophils # 8.2 H (1.3-7.7) k/uL Lymphocytes # 0.4 L (1.0-4.8) k/uL Monocytes # 0.3 (0-1.0) k/uL Eosinophils # 0.1 (0-0.7) k/uL Basophils # 0.0 (0-0.2) k/uL Sodium (137-145) mmol/L Potassium (3.5-5.1) mmol/L Chloride (98-107) mmol/L Carbon Dioxide (22-30) mmol/L Anion Gap mmol/L BUN (7-17) mg/dL Creatinine (0.52-1.04) mg/dL Est GFR (CKD-EPI)AfAm (>60 ml/min/1.73 sqM) Est GFR (CKD-EPI)NonAf (>60 ml/min/1.73 sqM) Glucose (74-99) mg/dL Calcium (8.4-10.2) mg/dL Magnesium 1.6 (1.6-2.3) mg/dL Total Bilirubin (0.2-1.3) mg/dL AST (14-36) U/L ALT (9-52) U/L Alkaline Phosphatase (38-126) U/L Total Protein (6.3-8.2) g/dL Albumin (3.5-5.0) g/dL Amylase (30-110) U/L Lipase (23-300) U/L Urine Color Urine Appearance (Clear) Urine pH (5.0-8.0) Ur Specific [place] (1.001-1.035) Urine Protein (Negative) Urine Glucose (UA) (Negative) Urine Ketones (Negative) Urine Blood (Negative) Urine Nitrite (Negative) Urine Bilirubin (Negative) Urine Urobilinogen (<2.0) mg/dL Ur Leukocyte Esterase (Negative) Urine RBC (0-5) /hpf Urine WBC (0-5) /hpf Urine WBC Clumps (None) /hpf Urine Bacteria (None) /hpf Urine Mucus (None) /hpf Urine Yeast (Budding) (None) /hpf Urine HCG, Qual (Not Detectd) - Radiology Data Radiology results: report reviewed (KUB is negative for acute disease, ultrasound renals of bladder shows no obstruction), image reviewed Disposition Clinical Impression: UTI (urinary tract infection), Pyelonephritis Disposition: HOME SELF-CARE Condition: Good Instructions: Urinary Tract Infection in Women (ED) Is patient prescribed a controlled substance at d/c from ED?: No Referrals: Luis Hernández DO [Primary Care Provider] - 1-2 days
[2018-07-23 16:51] LABS: ALT 27 U/L (9-52); AST 19 U/L (14-36); Albumin 2.8 g/dL (3.5-5.0); Alkaline Phosphatase 99 U/L (38-126); Amylase <30 U/L (30-110); Anion Gap 7 mmol/L; Blood Urea Nitrogen 18 mg/dL (7-17); Calcium 8.7 mg/dL (8.4-10.2); Carbon Dioxide 22 mmol/L (22-30); Chloride 102 mmol/L (98-107); Glucose 104 mg/dL (74-99); Lipase 61 U/L (23-300); Potassium 2.9 mmol/L (3.5-5.1); Sodium 131 mmol/L (137-145); Total Bilirubin 1.3 mg/dL (0.2-1.3); Total Protein 5.4 g/dL (6.3-8.2)
--- NOTE | 2018-07-23 16:53 | XR ---
EXAMINATION TYPE: XR KUB DATE OF EXAM: 07/23/2018 COMPARISON: 07/17/2018 HISTORY: Abdominal pain TECHNIQUE: Single view upright FINDINGS: There is no sign of intestinal obstruction or pneumoperitoneum. Fecal pattern is normal. Madhuri ng bases are clear. There are no pathologic calcifications. Bony structures appear intact. IMPRESSION: Nonacute abdomen. No change.
[2018-07-23 16:54] LABS: Basophils % (A) 0 %; Eosinophils # (A) 0.1 k/uL (0-0.7); Eosinophils % (A) 1 %; HCT 35.8 % (34.0-46.0); HGB 12.3 gm/dL (11.4-16.0); Lymphocytes # (A) 0.4 k/uL (1.0-4.8); Lymphocytes % (A) 4 %; MCH 33.1 pg (25.0-35.0); MCHC 34.4 g/dL (31.0-37.0); MCV 96.2 fL (80.0-100.0); Mean Platelet Volume 7.9; Monocytes # (A) 0.3 k/uL (0-1.0); Monocytes % (A) 3 %; Neutrophils # (A) 8.2 k/uL (1.3-7.7); Neutrophils % (A) 91 %; RBC 3.72 m/uL (3.80-5.40); RDW 12.6 % (11.5-15.5)
[2018-07-23 17:03] LABS: Platelet Count 122 k/uL (150-450)
[2018-07-23] MEDS ORDERED: POTASSIUM BICARBONATE/CIT AC 20 MEQ TABLET.EFF PO ONE (17:08)
--- NOTE | 2018-07-23 17:42 | US ---
EXAMINATION TYPE: US renals and bladder DATE OF EXAM: 07/23/2018 COMPARISON: NONE CLINICAL HISTORY: Pain. EXAM MEASUREMENTS: Right Kidney: 13.7 x 6.1 x 6.0 cm Left Kidney: 12.2 x 5.0 x 5.4 cm Right Kidney: some possible ff vs small cyst, multiple kidney stones largest measuring 0.3 x 0.3 x 0. 3cm Left Kidney: multiple kidney stones, irregular shaped cyst measuring 2.3 x 2.1 x 2.3cm and 1.5 x 1.2 x 1.3 Bladder: not visualized, not distended There is no evidence for hydronephrosis at this point in time. No nephrolithiasis is seen. No ericka s are identified. The urinary bladder is anechoic. Bilateral ureteral jets are seen. IMPRESSION: Nonobstructing multiple small calculi in both kidneys. Simple left renal cortical cysts. No renal obstruction seen.
[2018-07-23] MEDS ORDERED: cefTRIAXone 2,000 MG in SODIUM CHLORIDE 0.9% 100 ML IVPB STA (18:28)
[2018-07-23] MEDS ORDERED: Acetaminophen-Codeine 300-30mg TAB PO STA (18:37)
[2018-07-23] MEDS ORDERED: ACET/COD 300 MG/30 MG STARTER PACK 6 TAB BTL PO STA (18:37)
[2018-07-23 20:07] VITALS: BP 94/72; PULSE 77; RESP 19; TEMP 97.9
== END 2018-07-23 20:04 | disposition home or self-care (01) ==
LOC: EC 14:35
DX: N12 Tubulo-interstitial nephritis, not specified as acute or chronic (principal); N39.0 Urinary tract infection, site not specified; F17.200 Nicotine dependence, unspecified, uncomplicated; Z88.0 Allergy status to penicillin; Z91.018 Allergy to other foods; Z91.048 Other nonmedicinal substance allergy status; Z79.899 Other long term (current) drug therapy; Z85.41 Personal history of malignant neoplasm of cervix uteri; Z87.442 Personal history of urinary calculi; Z98.51 Tubal ligation status; Z98.890 Other specified postprocedural states
CPT/HCPCS: 36415; 80053; 82150; 83690; 83735; 85025; 81001; 81025; 87086; 74018; 76770; 99285; 96365; 96375 ×4; 96361 ×2; J2405; J0696; J1885; J1170; C9113; 87077; 87186

== ENCOUNTER → 2018-08-16 | Outpatient (CLI) | payer OTHER ==
--- NOTE | 2018-08-16 12:03 | XR ---
EXAMINATION TYPE: XR lumbosacral spine min 4V DATE OF EXAM: 08/16/2018 COMPARISON: NONE HISTORY: 43-year-old female right hip pain and SI joint pain TECHNIQUE: 5 views FINDINGS: Hypertrophic facet arthropathy mid to lower lumbar spine. Vertebral body heights are preserved and al ignment is maintained. Disc interspaces are relatively maintained. IMPRESSION: Hypertrophic facet arthropathy mid to lower lumbar spine. No vertebral compression collapse or malali gnment.
--- NOTE | 2018-08-16 16:20 | XR ---
EXAMINATION TYPE: XR Hip Bilateral Complete DATE OF EXAM: 08/16/2018 COMPARISON: NONE HISTORY: 43-year-old female bilateral hip pain after multiple falls, right SI joint and hip pain. TECHNIQUE: 2 views each side FINDINGS: Overall hip joint space appears maintained. No acute fracture, subluxation, or dislocation seen. IMPRESSION: No acute osseous abnormality seen.
== END | disposition home or self-care (01) ==
LOC: RADXRMAIN 10:37
PROVIDERS: ATTEND Family Medicine
DX: M46.96 Unspecified inflammatory spondylopathy, lumbar region (principal); M25.551 Pain in right hip
CPT/HCPCS: 72110; 73521

== ENCOUNTER 2019-12-28 14:57 | Emergency (ER) | payer OTHER ==
[2019-12-28 15:19] VITALS: RESP 18
[2019-12-28] MEDS ORDERED: SODIUM CHLORIDE 0.9% 1,000 ML IV STA (15:34)
[2019-12-28] MEDS ORDERED: KETOROLAC 30 MG/ML 1 ML VIAL IVP STA (15:35)
--- NOTE | 2019-12-28 15:38 | ED ---
General Adult HPI - General Chief complaint: Syncope Stated complaint: Fall - [facility] Time Seen by Provider: 12/28/19 15:03 Source: EMS Mode of arrival: ambulatory Limitations: no limitations - History of Present Illness Initial comments: Patient is a 44-year-old female presenting to the emergency department via EMS after having a syncopal episode at work today. Patient states she works at [employer] and has been working out by the outside doors, wearing a mask, she states she started feeling lightheaded and then had a syncopal event. Witness states she was only out a few seconds. Patient states she has had a history of hypoglycemic events in the past. Patient states she has not eaten anything today and has drank very little. Patient denies any recent changes in her medications. She states she does have a mild headache but doesn't history of migraines. She denies being on blood thinners. She denies pain anywhere else at this time. She denies being at this time secondary to tubal ligation. She denies any recent fever, chills, shortness of breath, chest pain, abdominal pain, nausea, vomiting, diarrhea. She has no further complaints at this time. Upon arrival to the ER, her vital signs are stable. - Related Data Home Medications Medication Instructions Recorded Confirmed ALPRAZolam [Xanax] 2 mg PO TID PRN 06/20/14 07/23/18 Dextroamphetamine/Amphetamine 20 mg PO BID 07/17/18 07/23/18 [Dextroamp-Amphetamin 20 mg Tab] Previous Rx's Medication Instructions Recorded Nitrofurantoin Monohyd/M-Cryst 100 mg PO Q12HR #20 cap 07/23/18 [Macrobid] Allergies Allergy/AdvReac Type Severity Reaction Status Date / Time amoxicillin trihydrate Allergy Rash/Hives Verified 07/23/18 15:26 [From Trimox] grape Allergy Rash/Hives Verified 07/23/18 15:26 purple dye Allergy Rash/Hives Uncoded 07/23/18 14:53 root beer Allergy Rash/Hives Uncoded 07/23/18 14:53 Review of Systems ROS Statement: Those systems with pertinent positive or pertinent negative responses have been documented in the HPI. ROS Other: All systems not noted in ROS Statement are negative. Past Medical History Past Medical History: Cancer Additional Past Medical History / Comment(s): CERVICAL CANCER, MIGRAINE, HEAVY PERIODS, FREQUENT, kidney stones History of Any Multi-Drug Resistant Organisms: None Reported Past Surgical History: Tubal Ligation Additional Past Surgical History / Comment(s): CERVIX SURGERY FOR CANCER - LASER X3 Past Anesthesia/Blood Transfusion Reactions: No Reported Reaction Past Psychological History: Anxiety, Depression Smoking Status: Current every day smoker Past Alcohol Use History: None Reported Past Drug Use History: Marijuana - Past Family History Mother Family Medical History: No Reported History General Exam - General Exam Comments Initial Comments: GENERAL: Well-appearing, well-nourished and in no acute distress. HEAD: Atraumatic, normocephalic. EYES: Pupils equal round and reactive to light, extraocular movements intact, sclera anicteric, conjunctiva are normal. ENT: TMs normal, nares patent, oropharynx clear without exudates. Moist mucous membranes. NECK: Normal range of motion, supple without lymphadenopathy or JVD. LUNGS: Breath sounds clear to auscultation bilaterally and equal. No wheezes rales or rhonchi. HEART: Regular rate and rhythm without murmurs, rubs or gallops. ABDOMEN: Soft, nontender, normoactive bowel sounds. No guarding, no rebound. No masses appreciated. : Deferred EXTREMITIES: Normal range of motion, no pitting or edema. No clubbing or cyanosis. Strength is 5 out of 5 upper and lower extremities bilaterally. NEUROLOGICAL: Cranial nerves II through XII grossly intact. Normal speech, normal gait. PSYCH: Normal mood, normal affect. SKIN: Warm, Dry, normal turgor, no rashes or lesions noted. Limitations: no limitations Course Vital Signs 12/28/19 12/28/19 12/28/19 15:05 16:47 17:16 Temperature 97.8 F 98.2 F Pulse Rate 65 58 L Respiratory 18 18 Rate Blood Pressure 114/76 124/74 O2 Sat by Pulse 97 98 Oximetry EKG Findings - EKG Comments: EKG Findings:: Normal sinus rhythm, normal ECG. No signs of acute ischemia. Ventricular rate 64, W[place] interval 180, QTC 422. Medical Decision Making - Medical Decision Making Patient is a 44-year-old female presenting after a syncopal episode at work today. Her vital signs are stable. Her exam is unremarkable. She is not on blood thinners. EKG shows no acute findings. Chest x-ray shows no acute abnormality, troponin is normal. Lab work shows no other acute process, urine is normal. I discussed with patient this is most likely a combination from being overheated by working by the door as well as wearing a mask, and mild dehydration. Patient is agreement with this. She will increase her fluid intake and follow up with her PCP. She is stable for discharge at this time and is requesting to go home. Return parameters were discussed with the patient she verbalized understanding. Case discussed with Dr. Zamorano. - Lab Data Result diagrams: 12/28/19 16:07 12/28/19 16:07 Lab Results 12/28/19 12/28/19 12/28/19 Range/Units 16:07 16:07 16:07 WBC 5.6 (3.8-10.6) k/uL RBC 3.85 (3.80-5.40) m/uL Hgb 12.7 (11.4-16.0) gm/dL Hct 39.0 (34.0-46.0) % MCV 101.2 H (80.0-100.0) fL MCH 32.9 (25.0-35.0) pg MCHC 32.5 (31.0-37.0) g/dL RDW 12.5 (11.5-15.5) % Plt Count 237 (150-450) k/uL Neutrophils % 47 % Lymphocytes % 43 % Monocytes % 6 % Eosinophils % 2 % Basophils % 1 % Neutrophils # 2.6 (1.3-7.7) k/uL Lymphocytes # 2.4 (1.0-4.8) k/uL Monocytes # 0.3 (0-1.0) k/uL Eosinophils # 0.1 (0-0.7) k/uL Basophils # 0.0 (0-0.2) k/uL PT 9.6 (9.0-12.0) sec INR 0.9 (<1.2) APTT 26.5 (22.0-30.0) sec Sodium 139 (137-145) mmol/L Potassium 4.6 (3.5-5.1) mmol/L Chloride 108 H (98-107) mmol/L Carbon Dioxide 23 (22-30) mmol/L Anion Gap 8 mmol/L BUN 14 (7-17) mg/dL Creatinine 0.58 (0.52-1.04) mg/dL Est GFR (CKD-EPI)AfAm >90 (>60 ml/min/1.73 sqM) Est GFR (CKD-EPI)NonAf >90 (>60 ml/min/1.73 sqM) Glucose 80 (74-99) mg/dL Calcium 9.5 (8.4-10.2) mg/dL Total Bilirubin 0.9 (0.2-1.3) mg/dL AST 34 (14-36) U/L ALT 20 (4-34) U/L Alkaline Phosphatase 76 (38-126) U/L Troponin I (0.000-0.034) ng/mL Total Protein 7.0 (6.3-8.2) g/dL Albumin 4.3 (3.5-5.0) g/dL Urine Color Urine Appearance (Clear) Urine pH (5.0-8.0) Ur Specific [place] (1.001-1.035) Urine Protein (Negative) Urine Glucose (UA) (Negative) Urine Ketones (Negative) Urine Blood (Negative) Urine Nitrite (Negative) Urine Bilirubin (Negative) Urine Urobilinogen (<2.0) mg/dL Ur Leukocyte Esterase (Negative) Urine RBC (0-5) /hpf Urine WBC (0-5) /hpf Ur Squamous Epith Cells (0-4) /hpf Amorphous Sediment (None) /hpf Urine Bacteria (None) /hpf Urine Mucus (None) /hpf 12/28/19 12/28/19 Range/Units 16:07 16:07 WBC (3.8-10.6) k/uL RBC (3.80-5.40) m/uL Hgb (11.4-16.0) gm/dL Hct (34.0-46.0) % MCV (80.0-100.0) fL MCH (25.0-35.0) pg MCHC (31.0-37.0) g/dL RDW (11.5-15.5) % Plt Count (150-450) k/uL Neutrophils % % Lymphocytes % % Monocytes % % Eosinophils % % Basophils % % Neutrophils # (1.3-7.7) k/uL Lymphocytes # (1.0-4.8) k/uL Monocytes # (0-1.0) k/uL Eosinophils # (0-0.7) k/uL Basophils # (0-0.2) k/uL PT (9.0-12.0) sec INR (<1.2) APTT (22.0-30.0) sec Sodium (137-145) mmol/L Potassium (3.5-5.1) mmol/L Chloride (98-107) mmol/L Carbon Dioxide (22-30) mmol/L Anion Gap mmol/L BUN (7-17) mg/dL Creatinine (0.52-1.04) mg/dL Est GFR (CKD-EPI)AfAm (>60 ml/min/1.73 sqM) Est GFR (CKD-EPI)NonAf (>60 ml/min/1.73 sqM) Glucose (74-99) mg/dL Calcium (8.4-10.2) mg/dL Total Bilirubin (0.2-1.3) mg/dL AST (14-36) U/L ALT (4-34) U/L Alkaline Phosphatase (38-126) U/L Troponin I <0.012 (0.000-0.034) ng/mL Total Protein (6.3-8.2) g/dL Albumin (3.5-5.0) g/dL Urine Color Yellow Urine Appearance Cloudy H (Clear) Urine pH 7.5 (5.0-8.0) Ur Specific [place] 1.013 (1.001-1.035) Urine Protein Negative (Negative) Urine Glucose (UA) Negative (Negative) Urine Ketones Negative (Negative) Urine Blood Negative (Negative) Urine Nitrite Negative (Negative) Urine Bilirubin Negative (Negative) Urine Urobilinogen <2.0 (<2.0) mg/dL Ur Leukocyte Esterase Negative (Negative) Urine RBC 3 (0-5) /hpf Urine WBC 3 (0-5) /hpf Ur Squamous Epith Cells 6 H (0-4) /hpf Amorphous Sediment Rare H (None) /hpf Urine Bacteria Rare H (None) /hpf Urine Mucus Rare H (None) /hpf Disposition Clinical Impression: Dehydration, Syncope Disposition: HOME SELF-CARE Condition: Stable Instructions (If sedation given, give patient instructions): Dehydration (ED) Additional Instructions: Please return to the Emergency Department if symptoms worsen or any other concerns. Follow-up with PCP. Increase fluid intake and regular diet. Is patient prescribed a controlled substance at d/c from ED?: No Referrals: Luis Hernández DO [Primary Care Provider] - 1-2 days
[2019-12-28 16:25] LABS: Basophils % (A) 1 %; Eosinophils # (A) 0.1 k/uL (0-0.7); Eosinophils % (A) 2 %; HGB 12.7 gm/dL (11.4-16.0); Lymphocytes # (A) 2.4 k/uL (1.0-4.8); Lymphocytes % (A) 43 %; MCH 32.9 pg (25.0-35.0); MCHC 32.5 g/dL (31.0-37.0); MCV 101.2 fL (80.0-100.0); Mean Platelet Volume 7.2; Monocytes # (A) 0.3 k/uL (0-1.0); Monocytes % (A) 6 %; Neutrophils # (A) 2.6 k/uL (1.3-7.7); Neutrophils % (A) 47 %; Platelet Count 237 k/uL (150-450); RBC 3.85 m/uL (3.80-5.40); RDW 12.5 % (11.5-15.5); WBC 5.6 k/uL (3.8-10.6)
[2019-12-28 16:30] LABS: Amorphous Sediment,Urine Rare /hpf; Appearance,Urine Cloudy (Clear); Bacteria,Urine Rare /hpf; Bilirubin,Urine Negative (Negative); Blood,Urine Negative (Negative); Color,Urine Yellow; Glucose,Urine (UA) Negative (Negative); Ketones,Urine Negative (Negative); Leukocyte Esterase,Urine Negative (Negative); Mucus,Urine Rare /hpf; Nitrite,Urine Negative (Negative); PH, Urine 7.5 (5.0-8.0); Protein,Urine Negative (Negative); RBC,Urine 3 /hpf (0-5); Specific Gravity,Urine 1.013 (1.001-1.035); Squamous Epithelial Cell,Urine 6 /hpf (0-4); Urobilinogen,Urine <2.0 mg/dL (<2.0); WBC,Urine 3 /hpf (0-5)
[2019-12-28 16:33] LABS: ALT 20 U/L (4-34); AST 34 U/L (14-36); African American GFR (CKD) >90 (>60 ml/min/1.73 sqM); Albumin 4.3 g/dL (3.5-5.0); Alkaline Phosphatase 76 U/L (38-126); Anion Gap 8 mmol/L; Blood Urea Nitrogen 14 mg/dL (7-17); Calcium 9.5 mg/dL (8.4-10.2); Carbon Dioxide 23 mmol/L (22-30); Chloride 108 mmol/L (98-107); Glucose 80 mg/dL (74-99); Non-African American GFR(CKD) >90 (>60 ml/min/1.73 sqM); Potassium 4.6 mmol/L (3.5-5.1); Sodium 139 mmol/L (137-145); Total Bilirubin 0.9 mg/dL (0.2-1.3)
[2019-12-28 16:35] LABS: INR 0.9 (<1.2); Partial Thromboplastin Time 26.5 sec (22.0-30.0); Prothrombin Time 9.6 sec (9.0-12.0)
--- NOTE | 2019-12-28 16:35 | XR ---
EXAMINATION TYPE: XR chest 2V DATE OF EXAM: 12/28/2019 COMPARISON: 09/06/2015 INDICATION: Syncope TECHNIQUE: Frontal and lateral views of the chest are obtained. FINDINGS: The heart size is normal. The pulmonary vasculature is normal. Nipple shadows appear to be present. This is somewhat less distinct on the right side but is apparent ly present previously. Suspicious consolidations are not evident.. IMPRESSION: 1. No acute pulmonary process. Follow-up exams can be performed as clinically indicated.
[2019-12-28 16:48] VITALS: BP 124/74; PULSE 58
[2019-12-28 17:17] VITALS: TEMP 98.2
== END 2019-12-28 17:16 | disposition home or self-care (01) ==
LOC: EC 14:57
DX: E86.0 Dehydration (principal); R55 Syncope and collapse; F17.200 Nicotine dependence, unspecified, uncomplicated; Z79.899 Other long term (current) drug therapy; Z88.0 Allergy status to penicillin; Z91.018 Allergy to other foods; Z91.048 Other nonmedicinal substance allergy status; Z85.41 Personal history of malignant neoplasm of cervix uteri; Y99.0 Civilian activity done for income or pay
CPT/HCPCS: 36415; 93005; 80053; 84484; 85025; 85610; 85730; 81001; 71046; 99284; 96374; 96361; J1885

== ENCOUNTER → 2020-04-23 | Outpatient (CLI) | payer OTHER ==
--- NOTE | 2020-04-23 11:51 | MM ---
Reason for exam: clinical finding. History: Patient is postmenopausal and has history of other cancer at age 22. Family history of breast cancer in maternal aunt at age 43. Benign US breast aspiration ea add RT of the right breast, May 16, 2015. Benign US breast aspiration single RT of the right breast, May 16, 2015. Benign US breast aspiration single RT of the right breast, May 12, 2014. Indicated problem(s): lump or thickening in both breasts. Physical Findings: Nurse did not find any significant physical abnormalities on exam. MG 3D Diag Mammo W/Cad DIANA Bilateral CC and MLO view(s) were taken. The breast tissue is extremely dense which could obscure a lesion on mammography. Finding: There are grouped/clustered calcifications in the upper outer quadrant of both breasts. These results were verbally communicated with the patient and result sheet given to the patient on 04/23/20. ASSESSMENT: Suspicious, BI-RAD 4 RECOMMENDATION: Surgical consultation and localization and excision of both breasts. Called Dr. Hernández's office with mammographic findings and has scheduled an appointment for the patient for 05/04/20 at 10:[address] Sprague. PRELIMINARY REPORT CALLED AND FAXED TO DR. SPRAGUE ON 04/23/20.
--- NOTE | 2020-04-23 11:53 | USB ---
Reason for exam: clinical finding. History: Patient is postmenopausal and has history of other cancer at age 22. Family history of breast cancer in maternal aunt at age 43. Benign US breast aspiration ea add RT of the right breast, May 16, 2015. Benign US breast aspiration single RT of the right breast, May 16, 2015. Benign US breast aspiration single RT of the right breast, May 12, 2014. Indicated problem(s): lump or thickening in both breasts. US Breast BILAT Right complete breast ultrasound includes all four quadrants, the retroareolar region and axilla. Finding demonstrates a 0.4 x 0.4 x 0.2cm oval, cystic lesion at 1 o'clock, a 0.3 x 0.2 x 0.2cm oval, hypoechoic lesion at 1 o'clock and a 1.0 x 0.6 x 0.5cm lymph node at the axilla. Left complete breast ultrasound includes all four quadrants, the retroareolar region and axilla. Finding demonstrates a 0.2 x 0.2 x 0.1cm oval lesion too small to characterize at 1 o'clock and a 0.3 x 0.3 x 0.2cm oval, hypoechoic lesion at 1 o'clock. These results were verbally communicated with the patient and result sheet given to the patient on 04/23/20. ASSESSMENT: Probably benign, BI-RAD 3 RECOMMENDATION: Ultrasound of both breasts in 6 months.
== END | disposition home or self-care (01) ==
LOC: RADMAMWWP 07:26
PROVIDERS: ATTEND Family Medicine
DX: N63.20 Unspecified lump in the left breast, unspecified quadrant (principal); N63.10 Unspecified lump in the right breast, unspecified quadrant
CPT/HCPCS: 77066; 76641; G0279; 77062

== ENCOUNTER → 2020-05-08 | Outpatient (CLI) | payer OTHER | END | disposition home or self-care (01) | LOC: LABWHC1 09:02 | PROVIDERS: ATTEND Family Medicine | DX: Z03.818 Encounter for observation for suspected exposure to other biological agents ruled out (principal) | CPT/HCPCS: U0003; C9803 ==

== ENCOUNTER → 2020-05-25 | Outpatient (CLI) | payer OTHER ==
[2020-05-25 09:18] VITALS: BP 155/83; PULSE 55; RESP 16; TEMP 97.8
--- NOTE | 2020-05-25 10:39 | P.GSHP ---
History of Present Illness H&P Date: 05/25/20 Chief Complaint: Bilateral mammograms abnormal Elizabeth is a 44 year old [place]/ female seen in consultation for Dr. Ramos with a complaint of a right breast inverted nipple ( several months), and increased pain in the right breast. She had a mammogram done for the first time on 04-23-20. The findings were bilateral microcalcifications of concern in the upper outer quadrant of both breasts for which excision was recommended. The x-rays were reviewed with Dr. Jose from radiology and he has recommended that the mag views of both breasts be performed particularly on the left side where he believes that the microcalcifications of concern are hard er to define. The patient had not complained of any nipple discharge. She is not complaining of any lumps masses or nodules in her breast. She does complain of some tenderness in the right breast in the upper-outer quadrant region. She has not had any recent trauma or infection in her breast. She has had multiple cyst aspirated in the right breasts. These were benign. The patient states she had genetic testing done and was told she did not carry the BRCA1 gene. Caffeine: 2 cups coffee/day with a double shot of espresso/ coke/ mtn. Dew Nicotine: 1/2 PPD Theophylline: Occasional Family history: maternal aunt: pancreatic maternal grandfather: liver cancer maternal great aunt: breast cancer Hormonal History: menarche: 12 breast fed: no, age at : 21 periods irregular BCP: 14 years/ had a tubal ligation; now has had a total abdominal hysterectomy (done at 40) hormones: has not taken hormones Surgical history: 1. Tubal ligation 2. Total abdominal hysterectomy (ovarian and uterine pre-cancer) 3. 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 - Constitutional Constitutional: Reports sweats - EENT Eyes: denies blurred vision, denies pain Ears: deny: decreased hearing, tinnitus Ears, nose, mouth and throat: Denies headache, Denies sore throat - Breasts Breasts: bilateral: as per HPI - Cardiovascular Cardiovascular: Denies chest pain, Denies shortness of breath - Respiratory Comment: smoker, COPD Respiratory: Reports cough - Gastrointestinal Gastrointestinal: Denies abdominal pain, Denies diarrhea, Denies nausea, Denies vomiting - Genitourinary (Female) Comment: leaking urine Genitourinary: Denies dysuria, Denies hematuria - Menstruation Menstruation: Reports post hysterectomy - Musculoskeletal Comment: carpal tunnel left - Integumentary Integumentary: Denies pruritus, Denies rash - Neurological Neurological: Reports numbness, Denies weakness - Psychiatric Comment: ADHD Psychiatric: Reports anxiety - Endocrine Endocrine: Denies fatigue, Denies weight change - Hematologic/Lymphatic Comment: none - Allergic/Immunologic Allergic/Immunologic: Reports seasonal allergies Past Medical History Past Medical History: Cancer Additional Past Medical History / Comment(s): CERVICAL CANCER, MIGRAINE, HEAVY PERIODS, FREQUENT, kidney stones History of Any Multi-Drug Resistant Organisms: None Reported Past Surgical History: Tubal Ligation Additional Past Surgical History / Comment(s): CERVIX SURGERY FOR CANCER - LASER X3 Past Anesthesia/Blood Transfusion Reactions: No Reported Reaction Past Psychological History: Anxiety, Depression Smoking Status: Current every day smoker Past Alcohol Use History: None Reported Additional Past Alcohol Use History / Comment(s): SMOKES 5-6 CIGARETTES DAILY,STARTED SMOKING AGE 15 ON AND OFF. 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 Past Drug Use History: Marijuana - Past Family History Mother Family Medical History: No Reported History Medications and Allergies Home Medications Medication Instructions Recorded Confirmed Type Dextroamphetamine/Amphetamine 20 mg PO TID 05/25/20 05/25/20 History [Adderall] Ibuprofen [Motrin] 800 mg PO Q8H 05/25/20 05/25/20 History Allergies Allergy/AdvReac Type Severity Reaction Status Date / Time amoxicillin trihydrate Allergy Rash/Hives Verified 05/25/20 09:13 [From Trimox] grape Allergy Rash/Hives Verified 05/25/20 09:13 purple dye Allergy Rash/Hives Uncoded 05/25/20 09:13 root beer Allergy Rash/Hives Uncoded 05/25/20 09:13 Surgical - Exam Vital Signs Temp Pulse Resp BP Pulse Ox 97.8 F 55 L 16 155/83 100 05/25/20 09:15 05/25/20 09:15 05/25/20 09:15 05/25/20 09:15 05/25/20 09:15 BMI 19.7 - General well developed, well nourished, no distress - Eyes normal ocular movement - ENT no hearing loss - Neck trachea midline, no lymphadectomy - Respiratory normal expansion, normal respiratory effort, clear to auscultation - Cardiovascular Rhythm: regular Heart Sounds: normal: S1, S2 - Abdomen Abdomen: soft - Integumentary normal turgor - Neurologic no disoriented, no combative - Musculoskeletal normal gait - Psychiatric oriented to time, oriented to person, oriented to place, speech is normal, memory intact breast exam: BRA 34A inspection: bilateral grade 2 ptosis/ no nipple inversion at this exam Palpation: Right breast: Multiple positional exam fibrocystic changes no discrete dominant masses or nodules of concern Right axilla: No adenopathy of concern Left breast: Multiple positional exam no dominant masses or nodules of concern fibrocystic changes Left axilla: No adenopathy of concern Results Mammogram reviewed microcalcifications right breast, location of microcalcifications of left breast of question mag views recommended and left breast Assessment and Plan Assessment: Impression: 1. Intermittent nipple inversion right side 2. Fibrocystic breast changes 3. Family history of cancer 4. Abnormal bilateral mammogram Plan: 1. Secondary to the patient's breast size it is not felt that the multiple microcalcifications of concern can be sampled via stereo biopsy and therefore needle localization and excisional biopsy is recommended on the right side 2. Mag views of the left side were recommended as per radiology of these are going to be performed in the near future 3. needle local excisional biopsy of microcalcifications of concern on the left side 4. Obtain genetic testing results from Dr. Hernández CC: Dr. Hernández Risks and benefits of the procedure discussed with the patient. She understands and wishes to proceed. She has been given the option of attempting the stereo biopsy and would like to avoid that if possible. encounter 45 minutes, > 50% of time in planning and counselling
== END | disposition home or self-care (01) ==
LOC: WWCWWP 09:00
PROVIDERS: ATTEND Surgery
DX: Z53.9 Procedure and treatment not carried out, unspecified reason (principal)

== ENCOUNTER → 2020-07-26 | Outpatient (CLI) | payer OTHER ==
[2020-07-26 11:07] VITALS: BP 150/89; PULSE 77; RESP 16; TEMP 98
--- NOTE | 2020-07-26 11:19 | P.PN ---
Subjective Progress Note Date: 07/26/20 Principal diagnosis: Bilateral microcalcifications upper outer quadrant of each breast Elizabeth is a 44 year old [place] Citizen/ female seen in consultation for Dr. Ramos with a complaint of a right breast inverted nipple ( several months), and increased pain in the right breast. She had a mammogram done for the first time on 04-23-20. The findings were bilateral microcalcifications of concern in the upper outer quadrant of both breasts for which excision was recommended. The x-rays were reviewed with Dr. Jose from radiology and he has recommended that the mag views of both breasts be performed particularly on the left side where he believes that the microcalcifications of concern are harder to define. Repeat left breast mammogram was performed on , better demonstration of the calcifications of concern were noted. Secondary to the small size of the prostate is been recommended she undergo bilateral needle localization and excisional biopsy of the areas of microcalcification. The patient had not complained of any nipple discharge. She is not complaining of any lumps masses or nodules in her breast. She does complain of some tenderness in the right breast in the upper-outer quadrant region. She has not had any recent trauma or infection in her breast. She has had multiple cyst aspirated in the right breasts. These were benign. The patient states she had genetic testing done and was told she did not carry the BRCA1 gene. Caffeine: 2 cups coffee/day with a double shot of espresso/ coke/ mtn. Dew Nicotine: 1/2 PPD Theophylline: Occasional Family history: maternal aunt: pancreatic maternal grandfather: liver cancer maternal great aunt: breast cancer Hormonal History: menarche: 12 breast fed: no, age at : 21 periods irregular BCP: 14 years/ had a tubal ligation; now has had a total abdominal hysterectomy (done at 40) hormones: has not taken hormones Surgical history: 1. Tubal ligation 2. Total abdominal hysterectomy (ovarian and uterine pre-cancer) 3. 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 - Constitutional Constitutional: Reports sweats - EENT Eyes: denies blurred vision, denies pain Ears: deny: decreased hearing, tinnitus Ears, nose, mouth and throat: Denies headache, Denies sore throat - Breasts Breasts: bilateral: as per HPI - Cardiovascular Cardiovascular: Denies chest pain, Denies shortness of breath - Respiratory Comment: smoker, COPD Respiratory: Reports cough - Gastrointestinal Gastrointestinal: Denies abdominal pain, Denies diarrhea, Denies nausea, Denies vomiting - Genitourinary (Female) Comment: leaking urine Genitourinary: Denies dysuria, Denies hematuria - Menstruation Menstruation: Reports post hysterectomy - Musculoskeletal Comment: carpal tunnel left - Integumentary Integumentary: Denies pruritus, Denies rash - Neurological Neurological: Reports numbness, Denies weakness - Psychiatric Comment: ADHD Psychiatric: Reports anxiety - Endocrine Endocrine: Denies fatigue, Denies weight change - Hematologic/Lymphatic Comment: none - Allergic/Immunologic Allergic/Immunologic: Reports seasonal allergies Objective - Exam BMI 19.5 - Constitutional General appearance: Present: thin - EENT Eyes: Present: EOMI ENT: Present: hearing grossly normal - Neck Neck: Present: normal ROM - Respiratory Respiratory: bilateral: CTA - Cardiovascular Rhythm: regular Heart sounds: normal: S1, S2 - Gastrointestinal General gastrointestinal: Present: soft - Integumentary Integumentary: Present: normal turgor - Musculoskeletal Musculoskeletal: Present: gait normal - Psychiatric Psychiatric: Present: A&O x's 3, appropriate affect, intact judgment & insight - Additional findings Additional findings: Breast examination: Block: 30 4A Inspection: Bilateral grade 2 ptosis, no nipple inversion Palpation: Right breast: Multiple positional exam fibrocystic changes no dominant masses or nodules of concern Right axilla: No adenopathy of concern Left breast: Multi-positional exam no dominant masses or nodules of concern fibrocystic changes Left axilla: No adenopathy of concern Assessment and Plan Assessment: Impression: 1. Intermittent nipple inversion right 2. Fibrocystic changes bilateral 3. Family history of cancer 4. Abnormal bilateral mammogram Plan: 1. Secondary to the patient's breast size was not felt that the multiple microcalcifications can be sampled via stereo biopsy and therefore needle localization and needle localization and excisional biopsy was recommended bilaterally 2. Would like to obtain genetic testing results from Dr. Hernández 3. Possible onco-plastic tissue transfer; possible mastopexy incisions Risks and benefits of the procedure discussed with the patient. She understands and wishes to proceed. CC: Dr. Hernández encounter 20 minutes, > 50% of time in planning and counselling
== END | disposition home or self-care (01) ==
LOC: WWCWWP 10:54
PROVIDERS: ATTEND Surgery
DX: Z53.9 Procedure and treatment not carried out, unspecified reason (principal)

== ENCOUNTER 2020-07-31 10:30 | Day surgery (SDC) | payer OTHER ==
[2020-07-25 10:07] VITALS: BMI 19.5
[~2020-07-31 10:30] MED LIST: DEXAMETHASONE SOD PHOSPHATE 4 MG/ML 1 ML VIAL IV ONE; HEPARIN SODIUM,PORCINE 5,000 UNIT/ML 1 ML VIAL SQ PRN; HYDROmorphone 0.5 MG/0.5 ML SYRINGE IVP PRN; LACTATED RINGERS 1,000 ML IV SCH; LIDOCAINE 1% (10MG/ML) FOR IV START INTRADERMA PRN; MIDAZOLAM 2 MG/2 ML VIAL IV PRN; ONDANSETRON 4 MG/2 ML VIAL IVP ONE; Pre Op ABX Message 1 EACH MISC MISCELLANE ONE
[2020-07-31] MEDS ORDERED: ALPRAZolam 0.25 MG TAB ONE (11:06)
[2020-07-31 11:41] VITALS: RESP 16
[2020-07-31] MEDS ORDERED: LIDOCAINE 1% INJ 10MG/ML (20 ML MDV) SQ ONE ×2 (12:22→13:04)
[2020-07-31] MEDS ORDERED: MIDAZOLAM 2 MG/2 ML VIAL ONE (13:57)
[2020-07-31] MEDS ORDERED: fentaNYL (PF) 50 MCG/ML 2 ML AMP ONE (13:57)
[2020-07-31] MEDS ORDERED: LIDOCAINE 1% INJ 10MG/ML (20 ML MDV) ONE (13:57)
[2020-07-31] MEDS ORDERED: PROPOFOL 10 MG/ML 20 ML VIAL IV ONE (13:57)
[2020-07-31] MEDS ORDERED: LACTATED RINGERS 1,000 ML IV ONE (14:18)
--- NOTE | 2020-07-31 15:12 | P.OP ---
Date of Procedure: 07/31/20 Preoperative Diagnosis: Bilateral breast abnormal calcifications not amiable to stereo biopsy, recommended for bilateral needle local and open biopsy Postoperative Diagnosis: Bilateral abnormal breast microcalcifications Procedure(s) Performed: Bilateral needle localization and open excisional biopsy Anesthesia: KATHLEEN Surgeon: Peg Sprague Estimated Blood Loss (ml): 10 IV fluids (ml): 600 Pathology: other (Bilateral breast tissue) Condition: stable Disposition: same day Indications for Procedure: Bilateral abnormal microcalcifications Operative Findings: dense breast tissue Description of Procedure: Elizabeth is a 45-year-old white female who was noted to have microcalcifications of concern in both breasts. Her breasts are very small and she was not felt to be a good candidate for stereo biopsy therefore bilateral needle localization and excision was recommended. Following needle localization the patient was brought to the operating room. Following induction with anesthesia both breasts were prepped and draped in a sterile fashion. The left breast was approached initially. An incision was made at the area of the medial and wide excision down to the pectoralis muscle was performed. The specimen was painted for orientation and radiographs revealed microcalcifications of concern had been sampled. The wound was examined for hemostasis. After assured that this was attained the deep tissues were closed using 3-0 Vicryl suture. The skin was closed using 4-0 Monocryl. The right breast was then approached. An incision was made down to the hook of the needle. Surrounding tissue was excised. This was dissected onto the pectoralis muscle. After assured that hemostasis was attained the deep tissues were closed using 3-0 Vicryl suture. The skin was closed using Monocryl. The specimen was painted for orientation. The specimen was sent to radiology was felt that there was some calcifications in the specimen and it was most likely account manager sales representative in discussion with radiology. Therefore no further tissue was obtained. Steri-Strips were applied bilaterally. All instrument and sponge counts were correct at the end of the case. The patient tolerated procedure in stable condition.
--- NOTE | 2020-07-31 15:14 | P.DS ---
Providers Attending physician: Peg Sprague Primary care physician: Luis Hernández Plan - Discharge Summary Discharge Rx Participant: No New Discharge Prescriptions: No Action Dextroamphetamine/Amphetamine [Adderall] 20 mg PO QAM Ibuprofen [Motrin] 800 mg PO Q8H Discharge Medication List Dextroamphetamine/Amphetamine [Adderall] 20 mg PO QAM 05/25/20 [History] Ibuprofen [Motrin] 800 mg PO Q8H 07/25/20 [History] Follow up Appointment(s)/Referral(s): Peg Sprague MD [STAFF PHYSICIAN] - 08/09/20 4:20 pm Activity/Diet/Wound Care/Special Instructions: do not drive today or if taking narcotic pain medication may shower after 48 hours wear bra until seen by Dr. Abbott
[2020-07-31 15:31] VITALS: TEMP 97.2
[2020-07-31] MEDS ORDERED: HYDROcodone/APAP 5-325MG 1 EACH TAB ONE (16:26)
[2020-07-31] MEDS ORDERED: HYDROcodone/APAP 5-325MG 1 EACH TAB PO ONE (16:29)
[2020-07-31 17:00] VITALS: BP 152/90; PULSE 57
--- NOTE | 2020-07-31 19:27 | MM ---
EXAMINATION TYPE: MG pre op needle loc RT, MG surgical specimen RT DATE OF EXAM: 07/31/2020 COMPARISON: 04/23/2020 CLINICAL HISTORY: 44-year-old female with bilateral breast microcalcifications. Not amenable to stereotactic biopsy due to soft tissue thickness. TECHNIQUE: Needle localization with wire placement and surgical excision of area of concern in the upper outer quadrant right breast. FINDINGS: The procedure of needle localization with wire placement and than surgical excision was explained to the patient. Benefits, alternatives, and risks were discussed. An informed consent was then obtained. The shortest pathway for procedure was chosen. Shortest pathway was a lateral approach. The overlying skin was prepped and draped in usual sterile fashion. Lidocaine was used as anesthetic into the skin and subcutaneous tissue up to the level of area of concern. A 5 cm Kopans needle was used. It was placed via a lateral approach under mammographic guidance. Subsequent 90 degrees mammogram show the needle to be in satisfactory position relative to the targeted area. At this point, wire was placed and the needle was withdrawn. The wire was fixed to patient's skin. Images were marked for surgeon. The patient tolerated the procedure well without any immediate complication. The patient was kept in the radiology department for short stay after the procedure and then taken to surgery for surgical excision. The wire is present in the specimen mammogram. A few scattered punctate calcifications are demonstrated. Along the wire, there is some density mostly representing tissue. Some additional calcifications may be present here. The patient was kept in hospital for short stay after the procedure and then discharged home in stable condition. IMPRESSION: Uncomplicated needle localization with wire placement and partial surgical excision of the intended upper outer quadrant right breast microcalcifications. Full pathology results to follow. The decision to extend the excision margin versus follow-up will be partly dependent on the pending pathology results and pathology from the contralateral side as well. Pathology Results: High Risk A. BREAST, LEFT, LUMPECTOMY/EXCISIONAL BIOPSY: Sclerosing adenosis with microcalcification, fibrocystic change with apocrine metaplasia and focal usual ductal hyperplasia and columnar cell change. Negative for in situ or invasive malignancy. Benign margins of excision. B. BREAST, RIGHT, LUMPECTOMY/EXCISIONAL BIOPSY: Sclerosing adenosis with microcalcification, fibrocystic change with apocrine metaplasia, focal usual ductal hyperplasia and columnar cell change. Focal features favoring benign intraductal papilloma. Negative for in situ or invasive malignancy. Benign margins of excision. Recommendation Follow up mammogram of both breasts in 6 months. MTDD
--- NOTE | 2020-07-31 19:31 | MM ---
EXAMINATION TYPE: MG pre op needle loc LT, MG surgical specimen LT DATE OF EXAM: 07/31/2020 COMPARISON: 05/25/2020 and 04/23/2020 CLINICAL HISTORY: 45-year-old female referred for needle localization and excision of left breast microcalcifications. Not amenable to stereotactic biopsy due to soft tissue thickness. TECHNIQUE: Needle localization with wire placement and surgical excision of area of concern in the lateral left breast. FINDINGS: The procedure of needle localization with wire placement and than surgical excision was explained to the patient. Benefits, alternatives, and risks were discussed. An informed consent was then obtained. Multiple areas of calcification are present. All of these have an amorphous morphology. Difficult to determine with group of calcification corresponds to each other on each projection. We are placing the wire in an attempt to successfully sample any portion of these calcifications. The shortest pathway for procedure was chosen. Shortest pathway was a lateral approach. The overlying skin was prepped and draped in usual sterile fashion. Lidocaine was used as anesthetic into the skin and subcutaneous tissue up to the level of area of concern. A 5 cm Kopan's needle was used. It was placed via a lateral approach under mammographic guidance. Subsequent 90 degrees mammogram show the needle to be in satisfactory position relative to the targeted area. At this point, wire was placed and the needle was withdrawn. The wire was fixed to patient's skin. Images were marked for surgeon. The patient tolerated the procedure well without any immediate complication. The patient was kept in the radiology department for short stay after the procedure and then taken to surgery for surgical excision. Multiple groups of characteristic, amorphous calcifications and wire are identified in specimen mammogram. The patient was kept in hospital for short stay after the procedure and then discharged home in stable condition. IMPRESSION: Successful, uncomplicated needle localization with wire placement and surgical excision of, multiple calcifications in the left breast, full pathology results to follow. Note the recommendation for 6 month follow-up ultrasound on both sides made on the 04/23/2020 exam. Patient will be due for bilateral ultrasound in October 2020. Pathology Results: High Risk A. BREAST, LEFT, LUMPECTOMY/EXCISIONAL BIOPSY: Sclerosing adenosis with microcalcification, fibrocystic change with apocrine metaplasia and focal usual ductal hyperplasia and columnar cell change. Negative for in situ or invasive malignancy. Benign margins of excision. B. BREAST, RIGHT, LUMPECTOMY/EXCISIONAL BIOPSY: Sclerosing adenosis with microcalcification, fibrocystic change with apocrine metaplasia, focal usual ductal hyperplasia and columnar cell change. Focal features favoring benign intraductal papilloma. Negative for in situ or invasive malignancy. Benign margins of excision. Recommendation Follow up mammogram of both breasts in 6 months. LALITHA
== END 2020-07-31 17:01 | disposition home or self-care (01) ==
LOC: OR 10:30
PROVIDERS: ATTEND Surgery
DX: R92.0 Mammographic microcalcification found on diagnostic imaging of breast (principal); N64.59 Other signs and symptoms in breast; N64.4 Mastodynia; N64.81 Ptosis of breast; N60.12 Diffuse cystic mastopathy of left breast; N60.11 Diffuse cystic mastopathy of right breast; F90.9 Attention-deficit hyperactivity disorder, unspecified type; J44.9 Chronic obstructive pulmonary disease, unspecified; G43.909 Migraine, unspecified, not intractable, without status migrainosus; F17.210 Nicotine dependence, cigarettes, uncomplicated; Z88.0 Allergy status to penicillin; Z98.890 Other specified postprocedural states; Z87.442 Personal history of urinary calculi; Z79.1 Long term (current) use of non-steroidal anti-inflammatories (NSAID); Z79.899 Other long term (current) drug therapy; Z85.41 Personal history of malignant neoplasm of cervix uteri; Z80.0 Family history of malignant neoplasm of digestive organs; Z80.3 Family history of malignant neoplasm of breast
CPT/HCPCS: 19101; 19281; 19282; 81025; 88307; 76098 ×2; J2250; J1644; J1100; J2405; J2001; J3010; J2704; J1170

== ENCOUNTER → 2020-08-09 | Outpatient (CLI) | payer OTHER ==
[2020-08-09 16:23] VITALS: BP 114/74; PULSE 77; RESP 16; TEMP 98.4
--- NOTE | 2020-08-09 16:39 | P.PN ---
Progress Note - Text Progress Note Date: 08/09/20 Elizabeth is a 45 year old white female status post bilateral needle [place] [id number]. Both right and left breast were benign. Both breasts had microcalcifications of concern noted in the specimen. Postprocedure the patient has done well. Physical exam: Bilateral incisions clean and dry Impression: 1. Lateral open breast biopsy benign Plan: 1. Bilateral mammogram in 6 months with position exam at that time Cc: Dr. Luis Hernández
== END | disposition home or self-care (01) ==
LOC: WWCWWP 16:14
PROVIDERS: ATTEND Surgery
DX: Z53.9 Procedure and treatment not carried out, unspecified reason (principal)

== ENCOUNTER → 2021-04-01 | Outpatient (CLI) | payer OTHER ==
--- NOTE | 2021-04-01 09:04 | MM ---
Reason for exam: follow-up at short interval from prior study. Last mammogram was performed 10 months ago. History: Patient is postmenopausal, has history of high-risk lesion on a previous biopsy at age 45, and has history of other cancer at age 22. Family history of breast cancer in maternal aunt at age 43. High risk MG pre op loc each addl RT of the right breast, July 31, 2020. High risk MG pre op needle loc LT of the left breast, July 31, 2020. 2 lumpectomies of both breasts, July 31, 2020. Benign US breast aspiration ea add RT of the right breast, May 16, 2015. Benign US breast aspiration single RT of the right breast, May 16, 2015. Benign US breast aspiration single RT of the right breast, May 12, 2014. Physical Findings: Nurse did not find any significant physical abnormalities on exam. MG 3D Diag Mammo W/Cad DIANA Bilateral CC and MLO view(s) were taken. Prior study comparison: May 25, 2020, left breast MG follow up LT no charge. April 23, 2020, bilateral MG 3d diag mammo w/cad DIANA. The breast tissue is heterogeneously dense. This may lower the sensitivity of mammography. Post operative changes bilaterally. No suspicious calcifications. These results were verbally communicated with the patient and result sheet given to the patient on 04/01/21. ASSESSMENT: Benign, BI-RAD 2 RECOMMENDATION: Routine screening mammogram of both breasts in 1 year.
== END | disposition home or self-care (01) ==
LOC: RADMAMWWP 07:12
PROVIDERS: ATTEND Surgery
DX: R92.8 Other abnormal and inconclusive findings on diagnostic imaging of breast (principal)
CPT/HCPCS: 77066; G0279; 77062

== ENCOUNTER → 2021-05-24 | Outpatient (CLI) | payer OTHER | END | disposition home or self-care (01) | LOC: LABWHC1 11:30 | PROVIDERS: ATTEND Family Medicine | DX: Z03.818 Encounter for observation for suspected exposure to other biological agents ruled out (principal); Z20.822 Contact with and (suspected) exposure to COVID-19 | CPT/HCPCS: U0003; C9803; U0005 ==

== ENCOUNTER 2021-05-27 17:51 | Emergency (ER) | payer OTHER ==
[2021-05-27 18:43] LABS: Basophils % (A) 0 %; Eosinophils % (A) 1 %; HGB 13.8 gm/dL (11.4-16.0); Lymphocytes # (A) 1.6 k/uL (1.0-4.8); Lymphocytes % (A) 32 %; MCH 34.5 pg (25.0-35.0); MCHC 34.6 g/dL (31.0-37.0); MCV 99.5 fL (80.0-100.0); Mean Platelet Volume 7.4; Monocytes # (A) 0.3 k/uL (0-1.0); Monocytes % (A) 5 %; Neutrophils % (A) 61 %; Platelet Count 217 k/uL (150-450); RBC 4.02 m/uL (3.80-5.40); RDW 13.1 % (11.5-15.5)
[2021-05-27 18:50] LABS: INR 0.9 (<1.2); Prothrombin Time 9.6 sec (9.0-12.0)
[2021-05-27 18:51] LABS: ALT 19 U/L (4-34); AST 20 U/L (14-36); African American GFR (CKD) >90 (>60 ml/min/1.73 sqM); Albumin 4.1 g/dL (3.5-5.0); Alkaline Phosphatase 64 U/L (38-126); Anion Gap 6 mmol/L; Blood Urea Nitrogen 14 mg/dL (7-17); Calcium 9.4 mg/dL (8.4-10.2); Carbon Dioxide 25 mmol/L (22-30); Chloride 109 mmol/L (98-107); Glucose 177 mg/dL (74-99); Magnesium 1.8 mg/dL (1.6-2.3); Non-African American GFR(CKD) >90 (>60 ml/min/1.73 sqM); Potassium 3.6 mmol/L (3.5-5.1); Sodium 140 mmol/L (137-145); Total Bilirubin 0.2 mg/dL (0.2-1.3); Total Protein 6.6 g/dL (6.3-8.2)
[2021-05-27] MEDS ORDERED: SODIUM CHLORIDE 0.9% 50 ML IVPB ONE (22:00)
--- NOTE | 2021-05-27 22:00 | XR ---
EXAMINATION TYPE: XR chest 2V DATE OF EXAM: 05/27/2021 COMPARISON: 12/28/2019 HISTORY: Syncope TECHNIQUE: 2 views FINDINGS: Heart and mediastinum are normal. Lungs are clear of infiltrate. There are no hilar masses. There are surgical clips over both breasts. Bony thorax is intact IMPRESSION: No active cardiopulmonary disease. No change.
[2021-05-27] MEDS ORDERED: KETOROLAC 15 MG/ML 1 ML VIAL IVP STA (22:01)
--- NOTE | 2021-05-27 22:03 | ED ---
General Adult HPI - General Chief complaint: Chest Pain Stated complaint: Chest Pain/MACY/Covid+ Time Seen by Provider: 05/27/21 21:09 Source: patient, RN notes reviewed Mode of arrival: wheelchair Limitations: no limitations - History of Present Illness Initial comments: 45-year-old female with a past medical history of cervical cancer presents to the emergency room for a chief complaint of not feeling well. Patient has had a cough and congestion for about a week. Patient tested positive for coronavirus today. Patient states she is having chest pain that worsens with coughing. Hurts when she presses on her chest it with certain movements such as sitting up. Patient also is to some mild shortness of breath. Patient states that her sister got antibodies and told her she should get them as well.Patient has no other complaints at this time including abdominal pain, nausea or vomiting, headache, or visual changes. - Related Data Home Medications Medication Instructions Recorded Confirmed Dextroamphetamine/Amphetamine 20 mg PO QAM 05/25/20 08/09/20 [Adderall] Ibuprofen [Motrin] 800 mg PO Q8H 07/25/20 08/09/20 Cyclobenzaprine [Flexeril] 10 mg PO HS 08/09/20 08/09/20 Previous Rx's Medication Instructions Recorded guaiFENesin [Mucinex] 600 mg PO Q12HR PRN #20 tab 05/27/21 Allergies Allergy/AdvReac Type Severity Reaction Status Date / Time amoxicillin trihydrate Allergy Rash/Hives Verified 05/27/21 18:25 [From Trimox] grape Allergy Rash/Hives Verified 05/27/21 18:25 purple dye Allergy Rash/Hives Uncoded 05/27/21 18:25 root beer Allergy Rash/Hives Uncoded 05/27/21 18:25 Review of Systems ROS Statement: Those systems with pertinent positive or pertinent negative responses have been documented in the HPI. ROS Other: All systems not noted in ROS Statement are negative. Past Medical History Past Medical History: Cancer Additional Past Medical History / Comment(s): CERVICAL CANCER, MIGRAINE, HEAVY PERIODS, FREQUENT, kidney stones History of Any Multi-Drug Resistant Organisms: None Reported Past Surgical History: Tubal Ligation Additional Past Surgical History / Comment(s): CERVIX SURGERY FOR CANCER - LASER X3 Past Anesthesia/Blood Transfusion Reactions: No Reported Reaction Past Psychological History: Anxiety, Depression Smoking Status: Current every day smoker Past Alcohol Use History: None Reported Past Drug Use History: Marijuana - Past Family History Mother Family Medical History: No Reported History General Exam Limitations: no limitations General appearance: alert, in no apparent distress Head exam: Present: atraumatic Eye exam: Present: normal appearance, PERRL, EOMI. Absent: scleral icterus, conjunctival injection ENT exam: Present: normal exam, mucous membranes moist Neck exam: Present: normal inspection, full ROM. Absent: tenderness Respiratory exam: Present: normal lung sounds bilaterally. Absent: respiratory distress, wheezes Cardiovascular Exam: Present: regular rate, normal rhythm, normal heart sounds GI/Abdominal exam: Present: soft, normal bowel sounds. Absent: distended, tenderness Neurological exam: Present: alert Course Vital Signs 05/27/21 18:25 Temperature 98.5 F Pulse Rate 68 Respiratory 20 Rate Blood Pressure 154/84 O2 Sat by Pulse 99 Oximetry EKG Findings - EKG Comments: EKG Findings:: sinus bradycardia, vent rate 58, pr int 148, QTc 394 Medical Decision Making - Medical Decision Making Vitals are stable. HPI and physical exam as documented. Chest wall is tender to palpation. Pain is atypical in nature. CBC CMP unremarkable. EKG nonischemic. Troponin negative. Patient will be given antibody infusion. Recommend she follow up with her doctor. She will return here for any worsening symptoms. - Lab Data Result diagrams: 05/27/21 18:38 05/27/21 18:38 Lab Results 05/27/21 05/27/21 05/27/21 Range/Units 18:38 18:38 18:38 WBC 5.0 (3.8-10.6) k/uL RBC 4.02 (3.80-5.40) m/uL Hgb 13.8 (11.4-16.0) gm/dL Hct 40.0 (34.0-46.0) % MCV 99.5 (80.0-100.0) fL MCH 34.5 (25.0-35.0) pg MCHC 34.6 (31.0-37.0) g/dL RDW 13.1 (11.5-15.5) % Plt Count 217 (150-450) k/uL MPV 7.4 Neutrophils % 61 % Lymphocytes % 32 % Monocytes % 5 % Eosinophils % 1 % Basophils % 0 % Neutrophils # 3.0 (1.3-7.7) k/uL Lymphocytes # 1.6 (1.0-4.8) k/uL Monocytes # 0.3 (0-1.0) k/uL Eosinophils # 0.0 (0-0.7) k/uL Basophils # 0.0 (0-0.2) k/uL PT 9.6 (9.0-12.0) sec INR 0.9 (<1.2) APTT 25.0 (22.0-30.0) sec Sodium 140 (137-145) mmol/L Potassium 3.6 (3.5-5.1) mmol/L Chloride 109 H (98-107) mmol/L Carbon Dioxide 25 (22-30) mmol/L Anion Gap 6 mmol/L BUN 14 (7-17) mg/dL Creatinine 0.64 (0.52-1.04) mg/dL Est GFR (CKD-EPI)AfAm >90 (>60 ml/min/1.73 sqM) Est GFR (CKD-EPI)NonAf >90 (>60 ml/min/1.73 sqM) Glucose 177 H (74-99) mg/dL Calcium 9.4 (8.4-10.2) mg/dL Magnesium 1.8 (1.6-2.3) mg/dL Total Bilirubin 0.2 (0.2-1.3) mg/dL AST 20 (14-36) U/L ALT 19 (4-34) U/L Alkaline Phosphatase 64 (38-126) U/L Troponin I (0.000-0.034) ng/mL Total Protein 6.6 (6.3-8.2) g/dL Albumin 4.1 (3.5-5.0) g/dL 05/27/21 Range/Units 18:38 WBC (3.8-10.6) k/uL RBC (3.80-5.40) m/uL Hgb (11.4-16.0) gm/dL Hct (34.0-46.0) % MCV (80.0-100.0) fL MCH (25.0-35.0) pg MCHC (31.0-37.0) g/dL RDW (11.5-15.5) % Plt Count (150-450) k/uL MPV Neutrophils % % Lymphocytes % % Monocytes % % Eosinophils % % Basophils % % Neutrophils # (1.3-7.7) k/uL Lymphocytes # (1.0-4.8) k/uL Monocytes # (0-1.0) k/uL Eosinophils # (0-0.7) k/uL Basophils # (0-0.2) k/uL PT (9.0-12.0) sec INR (<1.2) APTT (22.0-30.0) sec Sodium (137-145) mmol/L Potassium (3.5-5.1) mmol/L Chloride (98-107) mmol/L Carbon Dioxide (22-30) mmol/L Anion Gap mmol/L BUN (7-17) mg/dL Creatinine (0.52-1.04) mg/dL Est GFR (CKD-EPI)AfAm (>60 ml/min/1.73 sqM) Est GFR (CKD-EPI)NonAf (>60 ml/min/1.73 sqM) Glucose (74-99) mg/dL Calcium (8.4-10.2) mg/dL Magnesium (1.6-2.3) mg/dL Total Bilirubin (0.2-1.3) mg/dL AST (14-36) U/L ALT (4-34) U/L Alkaline Phosphatase (38-126) U/L Troponin I <0.012 (0.000-0.034) ng/mL Total Protein (6.3-8.2) g/dL Albumin (3.5-5.0) g/dL Disposition Clinical Impression: COVID-19, Chest wall syndrome Disposition: HOME SELF-CARE Condition: Good Instructions (If sedation given, give patient instructions): Coronavirus Disease 2019 (COVID-19), Costochondritis (ED) Additional Instructions: Please take Motrin and Tylenol for pain. Take [id number] vitamins C and D and zinc. Follow-up with your doctor. Return to the emergency room for any worsening symptoms. Prescriptions: guaiFENesin [Mucinex] 600 mg PO Q12HR PRN #20 tab PRN Reason: Congestion Is patient prescribed a controlled substance at d/c from ED?: No Referrals: Luis Hernández DO [Primary Care Provider] - 1-2 days Time of Disposition: 22:01
[2021-05-27] MEDS ORDERED: BAMLANIVIMAB (EUA) 700 MG, ETESEVIMAB (EUA) 1,400 MG in SODIUM CHLORIDE 0.9% 50 ML IVPB ONE (22:15)
[2021-05-28 00:20] VITALS: BP 127/76; PULSE 87; RESP 15; TEMP 98.3
== END 2021-05-28 00:20 | disposition home or self-care (01) ==
LOC: EC 17:51
DX: U07.1 COVID-19 (principal); F17.200 Nicotine dependence, unspecified, uncomplicated; Z88.0 Allergy status to penicillin; Z91.018 Allergy to other foods; Z91.041 Radiographic dye allergy status
CPT/HCPCS: 99285 ×2; 96374; 36415; 93005; 80053; 83735; 84484; 85025; 85610; 85730; 71046; M0243; J1885; J3490

== ENCOUNTER 2022-07-07 20:29 | Emergency (ER) | payer OTHER ==
[2022-07-07 20:48] VITALS: TEMP 98
[2022-07-07] MEDS ORDERED: SODIUM CHLORIDE 0.9% 1,000 ML IV STA (21:34)
[2022-07-07] MEDS ORDERED: ONDANSETRON 4 MG/2 ML VIAL IVP STA (21:34)
[2022-07-07] MEDS ORDERED: KETOROLAC 15 MG/ML 1 ML VIAL IVP STA (21:34)
[2022-07-07] MEDS ORDERED: HYDROmorphone 1 MG/ML 1 ML SYRINGE IVP STA (21:35)
--- NOTE | 2022-07-07 22:19 | CT ---
EXAMINATION TYPE: CT abdomen pelvis w con DATE OF EXAM: 07/07/2022 HISTORY: abd pain not further specified. CT DLP: 369.9mGycm Automated Exposure Control for Dose Reduction was Utilized. CONTRAST: CT scan of the abdomen and pelvis is performed without oral but with IV Contrast, patient injected wi th 100 mL of Isovue 300. COMPARISON: CT abdomen and pelvis July 17, 2018 FINDINGS: LUNG BASES: No significant abnormality is appreciated. LIVER/GB: Scattered tiny hypodense foci throughout the liver are too small to further characterize bu t presumably benign. There is mild hepatomegaly noted similar to prior. PANCREAS: No significant abnormality is seen. SPLEEN: No significant abnormality is seen. ADRENALS: No significant abnormality is seen. KIDNEYS: There are 3 small right renal calculi and roughly 8 left-sided renal calculi which are large r in size measuring up to 6 to 7 mm below the level axial image 29. There is symmetric cortical medul tato uptake. There is normal right-sided excretion without hydronephrosis. There are simple appearing thin-walled cysts scattered throughout both kidneys. Upper pole left kidney shows no hydronephrosis. Lower pole modality shows moderate hydronephrosis due to obstructing 4 mm calculus at UVJ axial imag e 55. 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 BOWEL: No significant abnormality is seen. UTERUS/ADNEXA: Uterus is surgically absent or markedly atrophic. Scattered tiny pelvic phleboliths ar e seen. LYMPH NODES: No greater than 1cm abdominal or pelvic lymph nodes are appreciated. OSSEOUS STRUCTURES: No significant abnormality is seen. OTHER: No significant additional abnormality is seen. 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 There is moderate left jerica ed hydronephrosis of the lower pole modality and at least delayed excretion due to obstructing 4 mm c alculus at the left UVJ.
[2022-07-07 22:23] LABS: Basophils % (A) 1 %; Eosinophils # (A) 0.1 k/uL (0-0.7); Eosinophils % (A) 1 %; HCT 38.5 % (34.0-46.0); HGB 13.8 gm/dL (11.4-16.0); Lymphocytes # (A) 2.6 k/uL (1.0-4.8); Lymphocytes % (A) 33 %; MCH 34.2 pg (25.0-35.0); MCHC 35.8 g/dL (31.0-37.0); MCV 95.7 fL (80.0-100.0); Monocytes # (A) 0.3 k/uL (0-1.0); Monocytes % (A) 4 %; Neutrophils # (A) 4.8 k/uL (1.3-7.7); Neutrophils % (A) 61 %; Platelet Count 291 k/uL (150-450); RBC 4.02 m/uL (3.80-5.40); RDW 12.3 % (11.5-15.5); WBC 7.9 k/uL (3.8-10.6)
[2022-07-07 22:37] LABS: Amorphous Sediment,Urine Occasional /hpf; Appearance,Urine Cloudy (Clear); Bacteria,Urine Rare /hpf; Bilirubin,Urine Negative (Negative); Blood,Urine Negative (Negative); Color,Urine Yellow; Glucose,Urine (UA) Negative (Negative); Ketones,Urine 2+ (Negative); Leukocyte Esterase,Urine Trace (Negative); Mucus,Urine Rare /hpf; Nitrite,Urine Negative (Negative); PH, Urine 8.5 (5.0-8.0); Protein,Urine Trace (Negative); RBC,Urine 1 /hpf (0-5); Specific Gravity,Urine 1.018 (1.001-1.035); Squamous Epithelial Cell,Urine 1 /hpf (0-4); WBC,Urine 6 /hpf (0-5)
[2022-07-07 22:53] LABS: ALT 17 U/L (4-34); AST 22 U/L (14-36); African American GFR (CKD) >90 (>60 ml/min/1.73 sqM); Albumin 4.6 g/dL (3.5-5.0); Alkaline Phosphatase 91 U/L (38-126); Amylase 50 U/L (30-110); Anion Gap 8 mmol/L; Blood Urea Nitrogen 15 mg/dL (7-17); Calcium 9.8 mg/dL (8.4-10.2); Carbon Dioxide 20 mmol/L (22-30); Chloride 113 mmol/L (98-107); Glucose 84 mg/dL (74-99); Lipase 159 U/L (23-300); Non-African American GFR(CKD) >90 (>60 ml/min/1.73 sqM); Sodium 141 mmol/L (137-145); Total Bilirubin 0.8 mg/dL (0.2-1.3); Total Protein 7.2 g/dL (6.3-8.2)
--- NOTE | 2022-07-07 23:13 | ED ---
Abdominal Pain HPI - General Chief Complaint: Abdominal Pain Stated Complaint: poss appendix pain Time Seen by Provider: 07/07/22 21:28 Source: patient Mode of arrival: ambulatory Limitations: no limitations - History of Present Illness Initial Comments: Patient is a 46-year-old female presenting with chief complaint of left lower quadrant pain. Patient states the pain started yesterday. She has a history of kidney stones. Denies any flank pain. No dysuria or hematuria. No hematochezia, melena, diarrhea. Admits to nausea, no vomiting. No chest pain or difficulty breathing. No fever or chills. Patient has been having bowel movements and passing flatus. - Related Data Home Medications Medication Instructions Recorded Confirmed Dextroamphetamine/Amphetamine 20 mg PO QAM 05/25/20 08/09/20 [Adderall] Ibuprofen [Motrin] 800 mg PO Q8H 07/25/20 08/09/20 Cyclobenzaprine [Flexeril] 10 mg PO HS 08/09/20 08/09/20 Previous Rx's Medication Instructions Recorded guaiFENesin [Mucinex] 600 mg PO Q12HR PRN #20 tab 05/27/21 Allergies Allergy/AdvReac Type Severity Reaction Status Date / Time amoxicillin trihydrate Allergy Rash/Hives Verified 07/07/22 20:48 [From Trimox] grape Allergy Rash/Hives Verified 07/07/22 20:48 purple dye Allergy Rash/Hives Uncoded 07/07/22 20:48 root beer Allergy Rash/Hives Uncoded 07/07/22 20:48 Review of Systems ROS Statement: Those systems with pertinent positive or pertinent negative responses have been documented in the HPI. ROS Other: All systems not noted in ROS Statement are negative. Past Medical History Past Medical History: Cancer Additional Past Medical History / Comment(s): CERVICAL CANCER, MIGRAINE, HEAVY PERIODS, FREQUENT, kidney stones History of Any Multi-Drug Resistant Organisms: None Reported Past Surgical History: Tubal Ligation Additional Past Surgical History / Comment(s): CERVIX SURGERY FOR CANCER - LASER X3 Past Anesthesia/Blood Transfusion Reactions: No Reported Reaction Past Psychological History: Anxiety, Depression Smoking Status: Current every day smoker Past Alcohol Use History: None Reported Past Drug Use History: Marijuana - Past Family History Mother Family Medical History: No Reported History General Exam Limitations: no limitations General appearance: alert, in no apparent distress Head exam: Present: atraumatic, normocephalic, normal inspection Eye exam: Present: normal appearance Neck exam: Present: normal inspection Respiratory exam: Present: normal lung sounds bilaterally. Absent: respiratory distress, wheezes, rales, rhonchi, stridor Cardiovascular Exam: Present: regular rate, normal rhythm, normal heart sounds. Absent: systolic murmur, diastolic murmur, rubs, gallop, clicks GI/Abdominal exam: Present: soft, tenderness (Left-sided). Absent: distended, guarding, rebound, rigid Neurological exam: Present: alert, oriented X3, CN II-XII intact Psychiatric exam: Present: normal affect, normal mood Skin exam: Present: warm, dry, intact, normal color. Absent: rash Course Vital Signs 07/07/22 20:46 Temperature 98.0 F Pulse Rate 84 Respiratory 20 Rate Blood Pressure 120/80 O2 Sat by Pulse 99 Oximetry Medical Decision Making - Medical Decision Making Patient is a 46 female presenting with chief complaint of left lower quadrant pain that started yesterday. On physical examination patient is an 10 out of 10 pain. She has left sided abdominal tenderness on palpation. Abdomen is soft and nondistended. CBC shows no leukocytosis or anemia. CMP shows chloride 11. Carbon dioxide 20. Urine shows trace leukocytes with 6 WBCs, will be sent for culture. Negative hCG. CT shows duplicated collecting system and ureters on the left there is moderate left-sided hydronephrosis of the lower pole modality and at least delayed excretion due to obstructing 4 mm calculus at the left UVJ. On reassessment patient reports improvement in her symptoms. Patient will be discharged with pain in nausea medication and instructions for urology follow- up. Follow-up with PCP. Report back to ER with any new or worsening symptoms. Discussed return parameters and answered all questions. Patient conveyed verbal understanding and agreed to the plan. I discussed this case in detail with my attending Dr. Haq - Lab Data Result diagrams: 07/07/22 21:36 07/07/22 21:36 Lab Results 07/07/22 07/07/22 07/07/22 Range/Units 21:36 21:36 21:36 WBC 7.9 (3.8-10.6) k/uL RBC 4.02 (3.80-5.40) m/uL Hgb 13.8 (11.4-16.0) gm/dL Hct 38.5 (34.0-46.0) % MCV 95.7 (80.0-100.0) fL MCH 34.2 (25.0-35.0) pg MCHC 35.8 (31.0-37.0) g/dL RDW 12.3 (11.5-15.5) % Plt Count 291 (150-450) k/uL MPV 8.0 Neutrophils % 61 % Lymphocytes % 33 % Monocytes % 4 % Eosinophils % 1 % Basophils % 1 % Neutrophils # 4.8 (1.3-7.7) k/uL Lymphocytes # 2.6 (1.0-4.8) k/uL Monocytes # 0.3 (0-1.0) k/uL Eosinophils # 0.1 (0-0.7) k/uL Basophils # 0.0 (0-0.2) k/uL Sodium (137-145) mmol/L Potassium (3.5-5.1) mmol/L Chloride (98-107) mmol/L Carbon Dioxide (22-30) mmol/L Anion Gap mmol/L BUN (7-17) mg/dL Creatinine (0.52-1.04) mg/dL Est GFR (CKD-EPI)AfAm (>60 ml/min/1.73 sqM) Est GFR (CKD-EPI)NonAf (>60 ml/min/1.73 sqM) Glucose (74-99) mg/dL Plasma Lactic Acid Roly (0.7-2.0) mmol/L Calcium (8.4-10.2) mg/dL Total Bilirubin (0.2-1.3) mg/dL AST (14-36) U/L ALT (4-34) U/L Alkaline Phosphatase (38-126) U/L Total Protein (6.3-8.2) g/dL Albumin (3.5-5.0) g/dL Amylase (30-110) U/L Lipase (23-300) U/L Urine Color Yellow Urine Appearance Cloudy H (Clear) Urine pH 8.5 H (5.0-8.0) Ur Specific Patterson 1.018 (1.001-1.035) Urine Protein Trace H (Negative) Urine Glucose (UA) Negative (Negative) Urine Ketones 2+ H (Negative) Urine Blood Negative (Negative) Urine Nitrite Negative (Negative) Urine Bilirubin Negative (Negative) Urine Urobilinogen 2.0 (<2.0) mg/dL Ur Leukocyte Esterase Trace H (Negative) Urine RBC 1 (0-5) /hpf Urine WBC 6 H (0-5) /hpf Ur Squamous Epith Cells 1 (0-4) /hpf Amorphous Sediment Occasional H (None) /hpf Urine Bacteria Rare H (None) /hpf Urine Mucus Rare H (None) /hpf Urine HCG, Qual Not Detected (Not Detectd) 07/07/22 07/07/22 Range/Units 21:36 21:36 WBC (3.8-10.6) k/uL RBC (3.80-5.40) m/uL Hgb (11.4-16.0) gm/dL Hct (34.0-46.0) % MCV (80.0-100.0) fL MCH (25.0-35.0) pg MCHC (31.0-37.0) g/dL RDW (11.5-15.5) % Plt Count (150-450) k/uL MPV Neutrophils % % Lymphocytes % % Monocytes % % Eosinophils % % Basophils % % Neutrophils # (1.3-7.7) k/uL Lymphocytes # (1.0-4.8) k/uL Monocytes # (0-1.0) k/uL Eosinophils # (0-0.7) k/uL Basophils # (0-0.2) k/uL Sodium 141 (137-145) mmol/L Potassium 4.0 (3.5-5.1) mmol/L Chloride 113 H (98-107) mmol/L Carbon Dioxide 20 L (22-30) mmol/L Anion Gap 8 mmol/L BUN 15 (7-17) mg/dL Creatinine 0.63 (0.52-1.04) mg/dL Est GFR (CKD-EPI)AfAm >90 (>60 ml/min/1.73 sqM) Est GFR (CKD-EPI)NonAf >90 (>60 ml/min/1.73 sqM) Glucose 84 (74-99) mg/dL Plasma Lactic Acid Roly 1.5 (0.7-2.0) mmol/L Calcium 9.8 (8.4-10.2) mg/dL Total Bilirubin 0.8 (0.2-1.3) mg/dL AST 22 (14-36) U/L ALT 17 (4-34) U/L Alkaline Phosphatase 91 (38-126) U/L Total Protein 7.2 (6.3-8.2) g/dL Albumin 4.6 (3.5-5.0) g/dL Amylase 50 (30-110) U/L Lipase 159 (23-300) U/L Urine Color Urine Appearance (Clear) Urine pH (5.0-8.0) Ur Specific Patterson (1.001-1.035) Urine Protein (Negative) Urine Glucose (UA) (Negative) Urine Ketones (Negative) Urine Blood (Negative) Urine Nitrite (Negative) Urine Bilirubin (Negative) Urine Urobilinogen (<2.0) mg/dL Ur Leukocyte Esterase (Negative) Urine RBC (0-5) /hpf Urine WBC (0-5) /hpf Ur Squamous Epith Cells (0-4) /hpf Amorphous Sediment (None) /hpf Urine Bacteria (None) /hpf Urine Mucus (None) /hpf Urine HCG, Qual (Not Detectd) Disposition Clinical Impression: Kidney stone Disposition: HOME SELF-CARE Condition: Good Instructions (If sedation given, give patient instructions): Kidney Stones (ED) Additional Instructions: Follow-up with PCP and urology. Report back to ER with any new or worsening symptoms. Take Motrin and Tylenol as needed for pain control. Is patient prescribed a controlled substance at d/c from ED?: No Referrals: Luis Hernández DO [Primary Care Provider] - 1-2 days Elver Meadows MD [STAFF PHYSICIAN] - 1-2 days Time of Disposition: 23:12
[2022-07-07] MEDS ORDERED: traMADol 50 MG STARTER PACK 3 TAB BTL PO STA (23:14)
[2022-07-07] MEDS ORDERED: ONDANSETRON 4 MG ODT STARTER PACK 2 TAB BTL PO STA (23:14)
[2022-07-07] MEDS ORDERED: TAMSULOSIN 0.4 MG CAP.ER.24H PO STA (23:18)
[2022-07-07 23:30] VITALS: BP 137/76; PULSE 60; RESP 18
== END 2022-07-07 23:39 | disposition home or self-care (01) ==
LOC: EC 20:29
DX: N20.0 Calculus of kidney (principal); F41.9 Anxiety disorder, unspecified; F32.A Depression, unspecified; F17.200 Nicotine dependence, unspecified, uncomplicated; F12.90 Cannabis use, unspecified, uncomplicated; Z88.0 Allergy status to penicillin; Z91.018 Allergy to other foods; Z91.041 Radiographic dye allergy status
CPT/HCPCS: 36415; 80053; 82150; 83605; 83690; 85025; 81001; 81025; 74177; 99284; 96374; 96375 ×2; 96361; J2405; J1170; J1885; S0119; Q9967

== ENCOUNTER → 2022-10-10 | Outpatient (CLI) | payer OTHER ==
--- NOTE | 2022-10-10 09:16 | US ---
EXAMINATION TYPE: US kidneys/renal and bladder DATE OF EXAM: 10/10/2022 COMPARISON: NONE CLINICAL HISTORY: R10.9 ABD PAIN. h/o renal stones and cysts, passed renal stone recently, LLQ pain EXAM MEASUREMENTS: Right Kidney: 10.4 x 4.2 x 4.3 cm Left Kidney: 10.6 x 4.7x 5.5 cm Right Kidney: largest anechoic structure seen mid pole = 1.4 x 1.2 x 1.0cm, punctate echogenic foci m ay represent small stones Left Kidney: largest anechoic area with through transmission = 2.2 x 1.5 x 1.8cm, cluster of stones i nferior pole = 1.3 x 1.0cm Bladder: wnl There is no evidence for hydronephrosis at this point in time. No solid masses are identified. The urinary bladder is anechoic. Bilateral ureteral jets are seen. IMPRESSION: 1. Bilateral simple appearing cysts. 2. Nonobstructing calculus lower pole left kidney.
== END | disposition home or self-care (01) ==
LOC: RADUSWWP 08:31
PROVIDERS: ATTEND Family Medicine
DX: N20.0 Calculus of kidney (principal); N28.1 Cyst of kidney, acquired
CPT/HCPCS: 76770

== ENCOUNTER 2023-01-01 11:23 | Emergency (ER) | payer OTHER ==
[2023-01-01 11:42] VITALS: TEMP 97.9
[2023-01-01] MEDS ORDERED: KETOROLAC 15 MG/ML 1 ML VIAL IVP STA (12:45)
[2023-01-01] MEDS ORDERED: ONDANSETRON 4 MG/2 ML VIAL IVP STA (12:45)
[2023-01-01] MEDS ORDERED: SODIUM CHLORIDE 0.9% 1,000 ML IV STA (12:45)
--- NOTE | 2023-01-01 12:49 | ED ---
Abdominal Pain HPI - General Chief Complaint: Abdominal Pain Stated Complaint: Pain Lower Abd Time Seen by Provider: 01/01/23 12:31 Source: patient, RN notes reviewed, old records reviewed Mode of arrival: wheelchair Limitations: no limitations - History of Present Illness Initial Comments: Nontoxic-appearing 47-year-old female presents to the emergency room with complaints of right lower quadrant pain for 2 days with nausea vomiting and diarrhea. Denies any fevers. States that she did go to urgent care and recommended she come to the emergency room for evaluation of possible appendicitis. She had states that she does have a total hysterectomy, history of kidney stones but states this feels different. Denies any dysuria. No vaginal discharge. MD Complaint: abdominal pain -: days(s) (2) Location: RLQ Radiation: none Severity scale (1-10): 7 Quality: sharp Consistency: constant Improves With: nothing Worsens With: other (palpation) Associated Symptoms: nausea, vomiting, diarrhea Treatments Prior to Arrival: other (sent by urgent care) - Related Data Home Medications Medication Instructions Recorded Confirmed Dextroamphetamine/Amphetamine 20 mg PO QAM 05/25/20 08/09/20 [Adderall] Ibuprofen [Motrin] 800 mg PO Q8H 07/25/20 08/09/20 Cyclobenzaprine [Flexeril] 10 mg PO HS 08/09/20 08/09/20 Previous Rx's Medication Instructions Recorded guaiFENesin [Mucinex] 600 mg PO Q12HR PRN #20 tab 05/27/21 Allergies Allergy/AdvReac Type Severity Reaction Status Date / Time amoxicillin trihydrate Allergy Rash/Hives Verified 07/07/22 20:48 [From Trimox] bee venom protein (honey bee) Allergy Swelling Verified 01/01/23 11:42 grape Allergy Rash/Hives Verified 07/07/22 20:48 purple dye Allergy Rash/Hives Uncoded 07/07/22 20:48 root beer Allergy Rash/Hives Uncoded 07/07/22 20:48 Review of Systems ROS Statement: Those systems with pertinent positive or pertinent negative responses have been documented in the HPI. ROS Other: All systems not noted in ROS Statement are negative. Past Medical History Past Medical History: Cancer Additional Past Medical History / Comment(s): CERVICAL CANCER, MIGRAINE, HEAVY PERIODS, FREQUENT, kidney stones History of Any Multi-Drug Resistant Organisms: None Reported Past Surgical History: Hysterectomy, Tubal Ligation Additional Past Surgical History / Comment(s): CERVIX SURGERY FOR CANCER - LASER X3 Past Anesthesia/Blood Transfusion Reactions: No Reported Reaction Past Psychological History: Anxiety, Depression Smoking Status: Current every day smoker Past Alcohol Use History: None Reported Past Drug Use History: Marijuana - Past Family History Mother Family Medical History: No Reported History General Exam Limitations: no limitations General appearance: alert, in no apparent distress Head exam: Present: atraumatic Eye exam: Present: normal appearance. Absent: scleral icterus, conjunctival injection, periorbital swelling Neck exam: Absent: tenderness, meningismus Respiratory exam: Absent: respiratory distress, accessory muscle use Cardiovascular Exam: Present: regular rate GI/Abdominal exam: Present: soft, tenderness, normal bowel sounds. Absent: distended, guarding, rebound, rigid Extremities exam: Present: normal capillary refill. Absent: pedal edema Back exam: Absent: tenderness, CVA tenderness (R), CVA tenderness (L), paraspinal tenderness, vertebral tenderness, rash noted Neurological exam: Present: alert, oriented X3 Psychiatric exam: Present: normal affect, normal mood Skin exam: Present: warm, dry, normal color. Absent: cyanosis, diaphoretic, petechiae, pallor Course Vital Signs 01/01/23 01/01/23 11:37 16:00 Temperature 97.9 F Pulse Rate 62 63 Respiratory 20 18 Rate Blood Pressure 123/64 124/80 O2 Sat by Pulse 99 98 Oximetry Medical Decision Making - Medical Decision Making Was pt. sent in by a medical professional or institution (, PA, OAKES MACHINE OPERATOR, urgent care, hospital, or prison...) When possible be specific @ -Urgent care Did you speak to anyone other than the patient for history (EMS, parent, family, police, friend...)? What history was obtained from this source @ -No Did you review nursing and triage notes (agree or disagree)? Why? @ -I reviewed and agree with nursing and triage notes Were old charts reviewed (outside hosp., previous admission, EMS record, old EKG, old radiological studies, urgent care reports/EKG's, prison records)? Report findings @ -Previous labs 07/07/2022. Differential Diagnosis (chest pain, altered mental status, abdominal pain women, abdominal pain men, vaginal bleeding, weakness, fever, dyspnea, syncope, headache, dizziness, GI bleed, back pain, seizure, CVA, palpatations, mental health, musculoskeletal)? @ -Differential Abdominal Pain Women: Appendicitis, Cholecystitis, diverticulosis, ischemic bowel, pancreatitis, hepatitis, UTI, gastroenteritis, AAA, incarcerated hernia, bowel obstruction, constipation, inflammatory bowel, hepatitis, peptic ulcer disease, splenic infarction, perforated viscus, vulvitis, ovarian torsion, PID, kidney stone, placenta abruption, this is not meant to be an all-inclusive list EKG interpreted by me (3pts min.). @ -n/a X-rays interpreted by me (1pt min.). @ -no CT interpreted by me (1pt min.). @ -no U/S interpreted by me (1pt. min.). @ -no What testing was considered but not performed or refused? (CT, X-rays, U/S, labs)? Why? @ -None What meds were considered but not given or refused? Why? @ -None Did you discuss the management of the patient with other professionals (professionals i.e. , PA, OAKES MACHINE OPERATOR, lab, RT, psych nurse, manager social responsibility, nanoscience technician, teacher, interface control officer, home health care case manager)? Give summary @ -No Was smoking cessation discussed for >3mins.? @ -No Was critical care preformed (if so, how long)? @ -No Were there social determinants of health that impacted care today? How? (Homelessness, low income, unemployed, alcoholism, drug addiction, tr ansportation, low edu. Level, literacy, decrease access to med. care, assisted, rehab)? @ -No Was there de-escalation of care discussed even if they declined (Discuss DNR or withdrawal of care, Hospice)? DNR status @ -No What co-morbidities impacted this encounter? (DM, HTN, Smoking, COPD, CAD, Cancer, CVA, ARF, Chemo, Hep., AIDS, mental health diagnosis, sleep apnea, morbid obesity)? @ -Patient has a history of cervical cancer with total hysterectomy, anxiety, depression and a smoker. Was patient admitted / discharged? Hospital course, mention meds given and route, prescriptions, significant lab abnormalities, going to OR and other pertinent info. @ -Discharged. Nontoxic-appearing 47-year-old female presents to the emergency room with complaints of right lower quadrant pain for 2 days with nausea vomiting and diarrhea. Denies any fevers. States that she did go to urgent care and recommended she come to the emergency room for evaluation of possible lashonda endicitis. She had states that she does have a total hysterectomy, history of kidney stones but states this feels different. Denies any dysuria. No vaginal discharge. CBC and electrolytes are unremarkable. Lactic acid is negative. Influenza coronavirus swabs are negative. Lipase 387. Previous 159 on 07/07/2022. Ultrasound of the abdomen to rule out appendicitis shows nonvisualization of the appendix in the right lower quadrant. A few prominent lymph nodes within the right upper quadrant. Does not exclude diagnosis of acute appendicitis. Patient was given IV fluids Zofran and Toradol for pain. Patient states no relief and worse after ultrasound. CT was ordered CT of the abdomen and pelvis was performed due to patient's persistent right lower quadrant pain. CT shows no evidence of right lower quadrant acute process. No obstructive uropathy. Appendix is felt to be visualized and within normal limits. Bilateral nonobstructing renal calculi. Duplicated left collecting system. Bilateral simple appearing renal cysts and scattered hepatic subcentimeter probable cyst. Patient is discharged home and directed to follow up with her primary care doctor for continuation of care. Patient is afebrile and Vital signs are stable. On reassessment patient is sleeping on the cart in no acute distress. I explained that I do not have a source for her right lower quadrant pain at this time. We did discuss possibility that this may be a viral gastritis. I encouraged her to increase her fluid intake and follow-up with her doctor either Thursday or Thursday. Strict return parameters were discussed. Case discussed with Dr. Zamorano Undiagnosed new problem with uncertain prognosis? @ -No Drug Therapy requiring intensive monitoring for toxicity (Heparin, Nitro, Insulin, Cardizem)? @ -No Were any procedures done? @ -No Diagnosis/symptom? @ -Abdominal pain Acute, or Chronic, or Acute on Chronic? @ -Acute Uncomplicated (without systemic symptoms) or Complicated (systemic symptoms)? @ -Uncomplicated Side effects of treatment? @ -No Exacerbation, Progression, or Severe Exacerbation? @ -No Poses a threat to life or bodily function? How? (Chest pain, [place], [place], pneumonia, PE, COPD, DKA, ARF, appy, cholecystitis, CVA, Diverticulitis, Homicidal, Suicidal, threat to staff... and all critical care pts) @ -No - Lab Data Result diagrams: 01/01/23 13:02 01/01/23 13:02 Lab Results 01/01/23 01/01/23 01/01/23 Range/Units 13:02 13:02 13:02 WBC 5.4 (3.8-10.6) k/uL RBC 4.20 (3.80-5.40) m/uL Hgb 14.0 (11.4-16.0) gm/dL Hct 42.0 (34.0-46.0) % MCV 100.0 (80.0-100.0) fL MCH 33.4 (25.0-35.0) pg MCHC 33.4 (31.0-37.0) g/dL RDW 12.7 (11.5-15.5) % Plt Count 247 (150-450) k/uL MPV 7.6 Neutrophils % 60 % Lymphocytes % 27 % Monocytes % 6 % Eosinophils % 4 % Basophils % 0 % Neutrophils # 3.3 (1.3-7.7) k/uL Lymphocytes # 1.5 (1.0-4.8) k/uL Monocytes # 0.3 (0-1.0) k/uL Eosinophils # 0.2 (0-0.7) k/uL Basophils # 0.0 (0-0.2) k/uL PT 9.9 (9.0-12.0) sec INR 0.9 (<1.2) APTT 25.5 (22.0-30.0) sec Sodium (137-145) mmol/L Potassium (3.5-5.1) mmol/L Chloride (98-107) mmol/L Carbon Dioxide (22-30) mmol/L Anion Gap mmol/L BUN (7-17) mg/dL Creatinine (0.52-1.04) mg/dL Est GFR (CKD-EPI)AfAm (>60 ml/min/1.73 sqM) Est GFR (CKD-EPI)NonAf (>60 ml/min/1.73 sqM) Glucose (74-99) mg/dL Plasma Lactic Acid Roly (0.7-2.0) mmol/L Calcium (8.4-10.2) mg/dL Total Bilirubin (0.2-1.3) mg/dL AST (14-36) U/L ALT (4-34) U/L Alkaline Phosphatase (38-126) U/L Total Protein (6.3-8.2) g/dL Albumin (3.5-5.0) g/dL Amylase (30-110) U/L Lipase (23-300) U/L Urine Color Yellow Urine Appearance Turbid H (Clear) Urine pH 7.0 (5.0-8.0) Ur Specific [place] 1.016 (1.001-1.035) Urine Protein Negative (Negative) Urine Glucose (UA) Negative (Negative) Urine Ketones Negative (Negative) Urine Blood Negative (Negative) Urine Nitrite Negative (Negative) Urine Bilirubin Negative (Negative) Urine Urobilinogen <2.0 (<2.0) mg/dL Ur Leukocyte Esterase Negative (Negative) Urine RBC 2 (0-5) /hpf Urine WBC <1 (0-5) /hpf Ur Squamous Epith Cells <1 (0-4) /hpf Amorphous Sediment Rare H (None) /hpf Urine Mucus Rare H (None) /hpf Coronavirus (PCR) (Not Detectd) Influenza Type A RNA (Not Detectd) Influenza Type B (PCR) (Not Detectd) 01/01/23 01/01/23 01/01/23 Range/Units 13:02 13:02 13:02 WBC (3.8-10.6) k/uL RBC (3.80-5.40) m/uL Hgb (11.4-16.0) gm/dL Hct (34.0-46.0) % MCV (80.0-100.0) fL MCH (25.0-35.0) pg MCHC (31.0-37.0) g/dL RDW (11.5-15.5) % Plt Count (150-450) k/uL MPV Neutrophils % % Lymphocytes % % Monocytes % % Eosinophils % % Basophils % % Neutrophils # (1.3-7.7) k/uL Lymphocytes # (1.0-4.8) k/uL Monocytes # (0-1.0) k/uL Eosinophils # (0-0.7) k/uL Basophils # (0-0.2) k/uL PT (9.0-12.0) sec INR (<1.2) APTT (22.0-30.0) sec Sodium 138 (137-145) mmol/L Potassium 4.1 (3.5-5.1) mmol/L Chloride 106 (98-107) mmol/L Carbon Dioxide 24 (22-30) mmol/L Anion Gap 8 mmol/L BUN 16 (7-17) mg/dL Creatinine 0.65 (0.52-1.04) mg/dL Est GFR (CKD-EPI)AfAm >90 (>60 ml/min/1.73 sqM) Est GFR (CKD-EPI)NonAf >90 (>60 ml/min/1.73 sqM) Glucose 93 (74-99) mg/dL Plasma Lactic Acid Roly 0.8 (0.7-2.0) mmol/L Calcium 9.3 (8.4-10.2) mg/dL Total Bilirubin 0.5 (0.2-1.3) mg/dL AST 22 (14-36) U/L ALT 19 (4-34) U/L Alkaline Phosphatase 90 (38-126) U/L Total Protein 7.0 (6.3-8.2) g/dL Albumin 4.5 (3.5-5.0) g/dL Amylase 68 (30-110) U/L Lipase 387 H (23-300) U/L Urine Color Urine Appearance (Clear) Urine pH (5.0-8.0) Ur Specific [place] (1.001-1.035) Urine Protein (Negative) Urine Glucose (UA) (Negative) Urine Ketones (Negative) Urine Blood (Negative) Urine Nitrite (Negative) Urine Bilirubin (Negative) Urine Urobilinogen (<2.0) mg/dL Ur Leukocyte Esterase (Negative) Urine RBC (0-5) /hpf Urine WBC (0-5) /hpf Ur Squamous Epith Cells (0-4) /hpf Amorphous Sediment (None) /hpf Urine Mucus (None) /hpf Coronavirus (PCR) (Not Detectd) Influenza Type A RNA Not Detected (Not Detectd) Influenza Type B (PCR) Not Detected (Not Detectd) 01/01/23 Range/Units 13:02 WBC (3.8-10.6) k/uL RBC (3.80-5.40) m/uL Hgb (11.4-16.0) gm/dL Hct (34.0-46.0) % MCV (80.0-100.0) fL MCH (25.0-35.0) pg MCHC (31.0-37.0) g/dL RDW (11.5-15.5) % Plt Count (150-450) k/uL MPV Neutrophils % % Lymphocytes % % Monocytes % % Eosinophils % % Basophils % % Neutrophils # (1.3-7.7) k/uL Lymphocytes # (1.0-4.8) k/uL Monocytes # (0-1.0) k/uL Eosinophils # (0-0.7) k/uL Basophils # (0-0.2) k/uL PT (9.0-12.0) sec INR (<1.2) APTT (22.0-30.0) sec Sodium (137-145) mmol/L Potassium (3.5-5.1) mmol/L Chloride (98-107) mmol/L Carbon Dioxide (22-30) mmol/L Anion Gap mmol/L BUN (7-17) mg/dL Creatinine (0.52-1.04) mg/dL Est GFR (CKD-EPI)AfAm (>60 ml/min/1.73 sqM) Est GFR (CKD-EPI)NonAf (>60 ml/min/1.73 sqM) Glucose (74-99) mg/dL Plasma Lactic Acid Roly (0.7-2.0) mmol/L Calcium (8.4-10.2) mg/dL Total Bilirubin (0.2-1.3) mg/dL AST (14-36) U/L ALT (4-34) U/L Alkaline Phosphatase (38-126) U/L Total Protein (6.3-8.2) g/dL Albumin (3.5-5.0) g/dL Amylase (30-110) U/L Lipase (23-300) U/L Urine Color Urine Appearance (Clear) Urine pH (5.0-8.0) Ur Specific [place] (1.001-1.035) Urine Protein (Negative) Urine Glucose (UA) (Negative) Urine Ketones (Negative) Urine Blood (Negative) Urine Nitrite (Negative) Urine Bilirubin (Negative) Urine Urobilinogen (<2.0) mg/dL Ur Leukocyte Esterase (Negative) Urine RBC (0-5) /hpf Urine WBC (0-5) /hpf Ur Squamous Epith Cells (0-4) /hpf Amorphous Sediment (None) /hpf Urine Mucus (None) /hpf Coronavirus (PCR) Not Detected (Not Detectd) Influenza Type A RNA (Not Detectd) Influenza Type B (PCR) (Not Detectd) Disposition Clinical Impression: Abdominal pain Disposition: HOME SELF-CARE Condition: Good Instructions (If sedation given, give patient instructions): Abdominal Pain (ED) Additional Instructions: Increase your fluid intake. Tylenol and/or Motrin as needed for pain or discomfort. Follow-up with the primary care doctor tomorrow or Thursday. Return to the emergency room with any new or concerning symptoms. Is patient prescribed a controlled substance at d/c from ED?: No Referrals: Luis Hernández DO [Primary Care Provider] - 1-2 days Time of Disposition: 16:15
[2023-01-01 13:30] LABS: Basophils % (A) 0 %; Eosinophils # (A) 0.2 k/uL (0-0.7); Eosinophils % (A) 4 %; Lymphocytes # (A) 1.5 k/uL (1.0-4.8); Lymphocytes % (A) 27 %; MCH 33.4 pg (25.0-35.0); MCHC 33.4 g/dL (31.0-37.0); Mean Platelet Volume 7.6; Monocytes # (A) 0.3 k/uL (0-1.0); Monocytes % (A) 6 %; Neutrophils # (A) 3.3 k/uL (1.3-7.7); Neutrophils % (A) 60 %; Platelet Count 247 k/uL (150-450); RDW 12.7 % (11.5-15.5); WBC 5.4 k/uL (3.8-10.6)
[2023-01-01 13:38] LABS: INR 0.9 (<1.2); Partial Thromboplastin Time 25.5 sec (22.0-30.0); Prothrombin Time 9.9 sec (9.0-12.0)
[2023-01-01 13:46] LABS: ALT 19 U/L (4-34); AST 22 U/L (14-36); African American GFR (CKD) >90 (>60 ml/min/1.73 sqM); Albumin 4.5 g/dL (3.5-5.0); Alkaline Phosphatase 90 U/L (38-126); Amylase 68 U/L (30-110); Anion Gap 8 mmol/L; Blood Urea Nitrogen 16 mg/dL (7-17); Calcium 9.3 mg/dL (8.4-10.2); Carbon Dioxide 24 mmol/L (22-30); Chloride 106 mmol/L (98-107); Glucose 93 mg/dL (74-99); Lipase 387 U/L (23-300); Non-African American GFR(CKD) >90 (>60 ml/min/1.73 sqM); Potassium 4.1 mmol/L (3.5-5.1); Sodium 138 mmol/L (137-145); Total Bilirubin 0.5 mg/dL (0.2-1.3)
[2023-01-01 13:54] LABS: Amorphous Sediment,Urine Rare /hpf; Appearance,Urine Turbid (Clear); Bilirubin,Urine Negative (Negative); Blood,Urine Negative (Negative); Color,Urine Yellow; Glucose,Urine (UA) Negative (Negative); Ketones,Urine Negative (Negative); Leukocyte Esterase,Urine Negative (Negative); Mucus,Urine Rare /hpf; Nitrite,Urine Negative (Negative); Protein,Urine Negative (Negative); RBC,Urine 2 /hpf (0-5); Specific Gravity,Urine 1.016 (1.001-1.035); Squamous Epithelial Cell,Urine <1 /hpf (0-4); Urobilinogen,Urine <2.0 mg/dL (<2.0); WBC,Urine <1 /hpf (0-5)
--- NOTE | 2023-01-01 14:48 | US ---
EXAMINATION TYPE: US abdomen APPY DATE OF EXAM: 01/01/2023 COMPARISON: NONE CLINICAL INDICATION: Female, 47 years old with history of rlq pain; RLQ pain and swelling x 3 days. TECHNIQUE: Multiple sonographic images of the right lower quadrant were obtained with graded compress ion. FINDINGS: APPENDIX Is the appendix seen in its entirety from the proximal cecum to distal end: RLQ scanned, appendix no t visualized at time of scan Is there inflammatory changes or free fluid present: no NC MACHINIST NOTES: RLQ scanned. Multiple lymph nodes visualized. Largest short axis measurement = 0 .7 cm with cortical thickness 3.8 mm. IMPRESSION: Nonvisualization of the appendix in the right lower quadrant. Few prominent lymph nodes within the ri ght upper quadrant. This does not exclude diagnosis of acute appendicitis.
--- NOTE | 2023-01-01 15:49 | CT ---
EXAMINATION TYPE: CT abdomen pelvis w con CT DLP: 558.7 mGycm, Automated exposure control for dose reduction was used. DATE OF EXAM: 01/01/2023 3:41 PM COMPARISON: CT abdomen pelvis most recent from 07/07/2022 CLINICAL INDICATION:Female, 47 years old with history of rlq pain; RLQ pain TECHNIQUE: Axial CT of the abdomen and pelvis. Sagittal and coronal reformats were created on a [employer] workstation. Contrast used:100 mL of Isovue 300 with IV Contrast, Oral contrast used: without Oral Contrast FINDINGS: LOWER CHEST: Unremarkable ABDOMEN LIVER: Scattered hypoattenuating probable cysts. GALLBLADDER AND BILE DUCTS: Unremarkable. PANCREAS: Unremarkable. SPLEEN: Unremarkable. ADRENAL GLANDS: Unremarkable. KIDNEYS AND URETERS: Bilateral renal cysts. Left nonobstructing 7 mm calculus. Right scattered 2 mm c alculi. No evidence of obstructive uropathy. Duplex left collecting system. PELVIS BLADDER: Incompletely distended but grossly unremarkable. REPRODUCTIVE: Uterus is not visualized may be surgically absent. ABDOMEN & PELVIS STOMACH AND BOWEL: No evidence of bowel obstruction. The appendix is felt to be situated posterior to the cecum series 203 image 42 and appears normal. Terminal Ileum davison are within normal limits. PERITONEUM/RETROPERITONEUM: No evidence of pneumoperitoneum or free fluid. VASCULATURE: No evidence of aortic aneurysm. MUSCULOSKELETAL: No acute osseous abnormalities LYMPH NODES: No gross evidence for lymphadenopathy. SOFT TISSUE/ABDOMINAL WALL: Unremarkable IMPRESSION: 1. No evidence for right lower quadrant acute process to explain the patient's pain. There is no obs tructive uropathy. The appendix is felt to be visualized and within normal limits. 2. Bilateral nonobstructing renal calculi. 3. Duplicated left collecting system. 4. Bilateral simple appearing renal cysts and scattered hepatic subcentimeter probable cyst.
[2023-01-01 16:32] VITALS: BP 124/80; PULSE 63; RESP 18
== END 2023-01-01 16:28 | disposition home or self-care (01) ==
LOC: EC 11:23
DX: N20.0 Calculus of kidney (principal); N28.1 Cyst of kidney, acquired; F17.200 Nicotine dependence, unspecified, uncomplicated; F12.90 Cannabis use, unspecified, uncomplicated; Z20.822 Contact with and (suspected) exposure to COVID-19; Z88.0 Allergy status to penicillin; Z91.018 Allergy to other foods; Z91.030 Bee allergy status; Z91.041 Radiographic dye allergy status; Z90.710 Acquired absence of both cervix and uterus
CPT/HCPCS: 99285; 96374; 96375; 96361 ×3; 36415; 80053; 82150; 83605; 83690; 85025; 85610; 85730; 81001; 87502; 87635; 76705; 74177; J2405; J1885; Q9967

== ENCOUNTER 2023-03-31 15:25 | Emergency (ER) | payer OTHER ==
[2023-03-31] MEDS ORDERED: IBUPROFEN 800 MG TAB PO STA (16:03)
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
--- NOTE | 2023-03-31 16:33 | XR ---
EXAMINATION TYPE: XR chest 2V DATE OF EXAM: 03/31/2023 COMPARISON: NONE HISTORY: Chest pain TECHNIQUE: Frontal and lateral views of the chest are obtained. FINDINGS: There is no focal air space opacity. No evidence for pneumothorax. No pleural effusion. The cardiac silhouette size is within normal limits. The osseous structures are grossly intact. IMPRESSION: 1. No acute cardiopulmonary process.
--- NOTE | 2023-03-31 16:34 | XR ---
EXAMINATION TYPE: XR cervical spine comp DATE OF EXAM: 03/31/2023 CLINICAL HISTORY: pain COMPARISON: NONE TECHNIQUE: Frontal, lateral, oblique, swimmers, and open mouth view of the cervical spine are obtaine d. FINDINGS: The cervical spine is visualized in its entirety from C1 thru the top of T1 level. It is s atisfactory in alignment without evidence of acute fracture or dislocation. The pre-vertebral soft t issue appears within normal limits. Disc spaces are well preserved. The C1-C2 articulation is unremar kable on the open mouth view. The oblique images are within normal limits. IMPRESSION: No acute fracture or dislocation is seen in the cervical spine.ICD 10 NO FRACTURE, INITI AL EVALUATION
--- NOTE | 2023-03-31 16:34 | XR ---
EXAMINATION TYPE: XR thoracic spine complete DATE OF EXAM: 03/31/2023 CLINICAL HISTORY: pain TECHNIQUE: Frontal, lateral, and swimmer's view of thoracic spine are obtained. COMPARISON: None. FINDINGS: Thoracic spine show satisfactory alignment without evidence of acute fracture or dislocatio n. Vertebral body heights are preserved. Disc spaces are well preserved. Visualized ribs are unrem arkable. IMPRESSION: No acute fracture or dislocation is seen in the thoracic spine. ICD 10 NO FRACTURE, INIT IAL EVALUATION
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
[2023-03-31] MEDS ORDERED: ACET/COD 300 MG/30 MG STARTER PACK 6 TAB BTL PO STA (18:47)
[2023-03-31 19:29] VITALS: BP 159/79; PULSE 82; RESP 16; TEMP 98.1
== END 2023-03-31 19:29 | disposition home or self-care (01) ==
LOC: EC 15:25
DX: S30.0XXA Contusion of lower back and pelvis, initial encounter (principal); M54.6 Pain in thoracic spine; M54.2 Cervicalgia; R45.6 Violent behavior; F17.200 Nicotine dependence, unspecified, uncomplicated; F12.90 Cannabis use, unspecified, uncomplicated; Z86.59 Personal history of other mental and behavioral disorders; Y04.0XXA Assault by unarmed brawl or fight, initial encounter
CPT/HCPCS: 70450; 71046; 72050; 72072; 72125; 99284

== ENCOUNTER 2023-07-28 12:54 | Emergency (ER) | payer OTHER ==
[2023-07-28 13:04] VITALS: TEMP 97.9
[2023-07-28 13:14] LABS: Basophils % (A) 0 %; Eosinophils # (A) 0.3 k/uL (0-0.7); Eosinophils % (A) 2 %; HCT 40.8 % (34.0-46.0); Lymphocytes # (A) 1.9 k/uL (1.0-4.8); Lymphocytes % (A) 15 %; MCH 34.2 pg (25.0-35.0); MCHC 34.4 g/dL (31.0-37.0); MCV 99.6 fL (80.0-100.0); Mean Platelet Volume 7.2; Monocytes # (A) 0.6 k/uL (0-1.0); Monocytes % (A) 4 %; Neutrophils # (A) 9.6 k/uL (1.3-7.7); Neutrophils % (A) 77 %; Platelet Count 267 k/uL (150-450); RDW 12.1 % (11.5-15.5); WBC 12.5 k/uL (3.8-10.6)
[2023-07-28 13:25] LABS: INR 0.9 (<1.2); Partial Thromboplastin Time 28.8 sec (22.0-30.0); Prothrombin Time 9.7 sec (10.0-12.5)
[2023-07-28 13:37] LABS: ALT 14 U/L (4-34); AST 20 U/L (14-36); African American GFR (CKD) >90 (>60 ml/min/1.73 sqM); Albumin 4.3 g/dL (3.5-5.0); Alkaline Phosphatase 91 U/L (38-126); Anion Gap 14 mmol/L; Blood Urea Nitrogen 10 mg/dL (7-17); Calcium 9.6 mg/dL (8.4-10.2); Carbon Dioxide 20 mmol/L (22-30); Chloride 106 mmol/L (98-107); Glucose 95 mg/dL (74-99); Magnesium 1.7 mg/dL (1.6-2.3); Non-African American GFR(CKD) >90 (>60 ml/min/1.73 sqM); Potassium 3.6 mmol/L (3.5-5.1); Sodium 140 mmol/L (137-145); Total Bilirubin 0.6 mg/dL (0.2-1.3); Total Protein 7.1 g/dL (6.3-8.2)
[2023-07-28] MEDS ORDERED: ONDANSETRON 4 MG/2 ML VIAL IVP STA (13:37)
--- NOTE | 2023-07-28 13:37 | ED ---
General Adult HPI - General Chief complaint: Chest Pain Stated complaint: Chest Pain,Sob Time Seen by Provider: 07/28/23 13:15 Source: patient, RN notes reviewed, old records reviewed Mode of arrival: ambulatory Limitations: no limitations - History of Present Illness Initial comments: This a 48-year-old female presents emergency Department stating she's had upper respiratory infection for the last 3 or 4 days. Patient states since Thursday she's been vomiting and having diarrhea as well. Patient states she started having sharp chest pain with inspiration. Patient states she initially had a fever but over the last couple days she has not had a fever. Patient states today she has sharp pain in her chest with deep breathing and she feels a little short of breath. Patient also states she's been drinking quite a bit of fluid but continues to have diarrhea. - Related Data Home Medications Medication Instructions Recorded Confirmed D-Methorphan/PE/Acetaminophen 1 tab PO Q4H PRN 07/28/23 07/28/23 [Tylenol Cold Max Day Caplet] Allergies Allergy/AdvReac Type Severity Reaction Status Date / Time amoxicillin trihydrate Allergy Rash/Hives Verified 07/28/23 14:55 [From Trimox] bee venom protein (honey bee) Allergy Swelling Verified 07/28/23 14:55 grape Allergy Rash/Hives Verified 07/28/23 14:55 purple dye Allergy Rash/Hives Uncoded 07/28/23 14:55 root beer Allergy Rash/Hives Uncoded 07/28/23 14:55 Review of Systems ROS Statement: Those systems with pertinent positive or pertinent negative responses have been documented in the HPI. ROS Other: All systems not noted in ROS Statement are negative. Past Medical History Past Medical History: Cancer Additional Past Medical History / Comment(s): CERVICAL CANCER, MIGRAINE, HEAVY PERIODS, FREQUENT, kidney stones History of Any Multi-Drug Resistant Organisms: None Reported Past Surgical History: Hysterectomy, Tubal Ligation Additional Past Surgical History / Comment(s): CERVIX SURGERY FOR CANCER - LASER X3 Past Anesthesia/Blood Transfusion Reactions: No Reported Reaction Past Psychological History: Anxiety, Depression Smoking Status: Current every day smoker Past Alcohol Use History: None Reported Past Drug Use History: Marijuana - Past Family History Mother Family Medical History: No Reported History General Exam - General Exam Comments Initial Comments: GENERAL: Patient is well-developed and well-nourished. Patient is nontoxic and well- hydrated and is in mild distress. ENT: Neck is soft and supple. No significant lymphadenopathy is noted. Oropharynx is clear. Moist mucous membranes. Neck has full range of motion without eliciting any pain. EYES: The sclera were anicteric and conjunctiva were pink and moist. Extraocular movements were intact and pupils were equal round and reactive to light. Eyelids were unremarkable. PULMONARY: Unlabored respirations. Good breath sounds bilaterally. No audible rales rhonchi or wheezing was noted. CARDIOVASCULAR: There is a regular rate and rhythm without any murmurs gallops or rubs. ABDOMEN: Soft and nontender with normal bowel sounds. SKIN: Skin is clear with no lesions or rashes and otherwise unremarkable. NEUROLOGIC: Patient is alert and oriented x3. Cranial nerves II through XII are grossly intact. Motor and sensory are also intact. Normal speech, volume and content. Symmetrical smile. MUSCULOSKELETAL: Normal extremities with adequate strength and full range of motion. No lower extremity swelling or edema. No calf tenderness. LYMPHATICS: No significant lymphadenopathy is noted PSYCHIATRIC: Normal psychiatric evaluation. Limitations: no limitations Course Vital Signs 07/28/23 07/28/23 12:58 13:35 Temperature 97.9 F Pulse Rate 72 Pulse Rate [ 71 Pulse Oximetery ] Respiratory 20 Rate Blood Pressure 138/87 O2 Sat by Pulse 99 Oximetry Medical Decision Making - Medical Decision Making EKG interpreted by myself. EKG shows sinus rhythm at 66 bpm OR interval 286 QRS is 88 QT interval 388 QTC is 42 per patient's EKG shows no ST segment elevation or depression. Was pt. sent in by a medical professional or institution (, PA, ENGLISH TUTOR, urgent care, hospital, or chcf...) When possible be specific @ -No Did you speak to anyone other than the patient for history (EMS, parent, family, police, friend...)? What history was obtained from this source @ -No Did you review nursing and triage notes (agree or disagree)? Why? @ -I reviewed and agree with nursing and triage notes Were old charts reviewed (outside hosp., previous admission, EMS record, old EKG, old radiological studies, urgent care reports/EKG's, chcf records)? Report findings @ -I reviewed prior charts elaborate on this patient Differential Diagnosis (chest pain, altered mental status, abdominal pain women, abdominal pain men, vaginal bleeding, weakness, fever, dyspnea, syncope, headache, dizziness, GI bleed, back pain, seizure, CVA, palpatations, mental health, musculoskeletal)? @ -COVID, influenza A, influenza B, RSV, pneumonia, bronchitis, this is not all inclusive list EKG interpreted by me (3pts min.). @ -As above X-rays interpreted by me (1pt min.). @ -Chest x-ray shows no acute abnormality CT interpreted by me (1pt min.). @ -None done U/S interpreted by me (1pt. min.). @ -None done What testing was considered but not performed or refused? (CT, X-rays, U/S, labs)? Why? @ -None What meds were considered but not given or refused? Why? @ -None Did you discuss the management of the patient with other professionals (professionals i.e. , PA, ENGLISH TUTOR, lab, RT, psych nurse, rn social work, wreath inspector, teacher, learning and development officer, case fitter)? Give summary @ -No Was smoking cessation discussed for >3mins.? @ -No Was critical care preformed (if so, how long)? @ -No Were there social determinants of health that impacted care today? How? (Homelessness, low income, unemployed, alcoholism, drug addiction, transportation, low edu. Level, literacy, decrease access to med. care, half-way, rehab)? @ -No Was there de-escalation of care discussed even if they declined (Discuss DNR or withdrawal of care, Hospice)? DNR status @ -No What co-morbidities impacted this encounter? (DM, HTN, Smoking, COPD, CAD, Cancer, CVA, ARF, Chemo, Hep., AIDS, mental health diagnosis, sleep apnea, morbid obesity)? @ -None Was patient admitted / discharged? Hospital course, mention meds given and route, prescriptions, significant lab abnormalities, going to OR and other pertinent info. @ -I went back and reevaluated the patient once lab work was back in once patient got some fluids and she was feeling better she was no longer nauseous and had no diarrhea while in the emergency department. Undiagnosed new problem with uncertain prognosis? @ -No Drug Therapy requiring intensive monitoring for toxicity (Heparin, Nitro, Insulin, Cardizem)? @ -No Were any procedures done? @ -No Diagnosis/symptom? @ -Viral Syndrome Acute, or Chronic, or Acute on Chronic? @ -Acute Uncomplicated (without systemic symptoms) or Complicated (systemic symptoms)? @ -Complicated Side effects of treatment? @ -No Exacerbation, Progression, or Severe Exacerbation? @ -No Poses a threat to life or bodily function? How? (Chest pain, [place], [place], pneumonia, PE, COPD, DKA, ARF, appy, cholecystitis, CVA, Diverticulitis, Homicidal, Suicidal, threat to staff... and all critical care pts) @ -No - Lab Data Result diagrams: 07/28/23 13:04 07/28/23 13:04 Lab Results 07/28/23 07/28/23 07/28/23 Range/Units 13:04 13:04 13:04 WBC 12.5 H (3.8-10.6) k/uL RBC 4.10 (3.80-5.40) m/uL Hgb 14.0 (11.4-16.0) gm/dL Hct 40.8 (34.0-46.0) % MCV 99.6 (80.0-100.0) fL MCH 34.2 (25.0-35.0) pg MCHC 34.4 (31.0-37.0) g/dL RDW 12.1 (11.5-15.5) % Plt Count 267 (150-450) k/uL MPV 7.2 Neutrophils % 77 % Lymphocytes % 15 % Monocytes % 4 % Eosinophils % 2 % Basophils % 0 % Neutrophils # 9.6 H (1.3-7.7) k/uL Lymphocytes # 1.9 (1.0-4.8) k/uL Monocytes # 0.6 (0-1.0) k/uL Eosinophils # 0.3 (0-0.7) k/uL Basophils # 0.0 (0-0.2) k/uL PT 9.7 L (10.0-12.5) sec INR 0.9 (<1.2) APTT 28.8 (22.0-30.0) sec D-Dimer (<0.60) mg/L FEU Sodium 140 (137-145) mmol/L Potassium 3.6 (3.5-5.1) mmol/L Chloride 106 (98-107) mmol/L Carbon Dioxide 20 L (22-30) mmol/L Anion Gap 14 mmol/L BUN 10 (7-17) mg/dL Creatinine 0.64 (0.52-1.04) mg/dL Est GFR (CKD-EPI)AfAm >90 (>60 ml/min/1.73 sqM) Est GFR (CKD-EPI)NonAf >90 (>60 ml/min/1.73 sqM) Glucose 95 (74-99) mg/dL Calcium 9.6 (8.4-10.2) mg/dL Magnesium 1.7 (1.6-2.3) mg/dL Total Bilirubin 0.6 (0.2-1.3) mg/dL AST 20 (14-36) U/L ALT 14 (4-34) U/L Alkaline Phosphatase 91 (38-126) U/L Troponin I (0.000-0.034) ng/mL Total Protein 7.1 (6.3-8.2) g/dL Albumin 4.3 (3.5-5.0) g/dL Influenza Type A (PCR) (Not Detectd) Influenza Type B (PCR) (Not Detectd) RSV (PCR) (Not Detectd) SARS-CoV-2 (PCR) (Not Detectd) 07/28/23 07/28/23 07/28/23 Range/Units 13:04 13:29 13:55 WBC (3.8-10.6) k/uL RBC (3.80-5.40) m/uL Hgb (11.4-16.0) gm/dL Hct (34.0-46.0) % MCV (80.0-100.0) fL MCH (25.0-35.0) pg MCHC (31.0-37.0) g/dL RDW (11.5-15.5) % Plt Count (150-450) k/uL MPV Neutrophils % % Lymphocytes % % Monocytes % % Eosinophils % % Basophils % % Neutrophils # (1.3-7.7) k/uL Lymphocytes # (1.0-4.8) k/uL Monocytes # (0-1.0) k/uL Eosinophils # (0-0.7) k/uL Basophils # (0-0.2) k/uL PT (10.0-12.5) sec INR (<1.2) APTT (22.0-30.0) sec D-Dimer 0.48 (<0.60) mg/L FEU Sodium (137-145) mmol/L Potassium (3.5-5.1) mmol/L Chloride (98-107) mmol/L Carbon Dioxide (22-30) mmol/L Anion Gap mmol/L BUN (7-17) mg/dL Creatinine (0.52-1.04) mg/dL Est GFR (CKD-EPI)AfAm (>60 ml/min/1.73 sqM) Est GFR (CKD-EPI)NonAf (>60 ml/min/1.73 sqM) Glucose (74-99) mg/dL Calcium (8.4-10.2) mg/dL Magnesium (1.6-2.3) mg/dL Total Bilirubin (0.2-1.3) mg/dL AST (14-36) U/L ALT (4-34) U/L Alkaline Phosphatase (38-126) U/L Troponin I <0.012 (0.000-0.034) ng/mL Total Protein (6.3-8.2) g/dL Albumin (3.5-5.0) g/dL Influenza Type A (PCR) Not Detected (Not Detectd) Influenza Type B (PCR) Not Detected (Not Detectd) RSV (PCR) Not Detected (Not Detectd) SARS-CoV-2 (PCR) Not Detected (Not Detectd) Disposition Clinical Impression: Viral syndrome Disposition: HOME SELF-CARE Instructions (If sedation given, give patient instructions): Viral Syndrome (ED) Additional Instructions: Patient should increase by mouth fluids and take Zofran that she or he has at home when necessary for nausea Is patient prescribed a controlled substance at d/c from ED?: No Referrals: Luis Hernández DO [Primary Care Provider] - 1-2 days Time of Disposition: 15:16
[2023-07-28] MEDS ORDERED: SODIUM CHLORIDE 0.9% 1,000 ML IV ONE (13:38)
--- NOTE | 2023-07-28 14:05 | XR ---
EXAMINATION TYPE: XR chest 2V DATE OF EXAM: 07/28/2023 COMPARISON: 03/31/2023 HISTORY: 48-year-old female with chest pain TECHNIQUE: PA and lateral views FINDINGS: The cardiomediastinal silhouette, aorta, and pulmonary vasculature are within normal limits. Surgical clips in both mid chest level suggesting prior excisional change. Lungs and pleural spaces are clear . IMPRESSION: No acute cardiopulmonary process.
[2023-07-28 15:53] VITALS: BP 106/78; PULSE 98; RESP 18
== END 2023-07-28 15:40 | disposition home or self-care (01) ==
LOC: EC 12:54
DX: B34.9 Viral infection, unspecified (principal); F17.200 Nicotine dependence, unspecified, uncomplicated; F12.90 Cannabis use, unspecified, uncomplicated; Z86.59 Personal history of other mental and behavioral disorders; Z20.822 Contact with and (suspected) exposure to COVID-19; Z88.0 Allergy status to penicillin; Z91.030 Bee allergy status; Z91.018 Allergy to other foods
CPT/HCPCS: 36415; 93005; 85379; 80053; 83735; 84484; 85025; 85610; 85730; 87636; 71046; 99285; 96374; 96361; J2405

== ENCOUNTER → 2025-02-03 | Outpatient (CLI) | payer OTHER ==
[2025-02-03 15:32] LABS: Anion Gap 10.10 mmol/L (4.00-12.00); BUN/Creat Ratio 16.14 Ratio (12.00-20.00); Blood Urea Nitrogen 11.3 mg/dL (9.0-27.0); Calcium 9.8 mg/dL (8.7-10.3); Carbon Dioxide 25.9 mmol/L (21.6-31.8); Chloride 106 mmol/L (96-109); Glucose 117 mg/dL (70-110); Potassium 4.2 mmol/L (3.5-5.5); Sodium 142 mmol/L (135-145)
== END | disposition home or self-care (01) ==
LOC: LABWHC1 11:23
DX: B37.2 Candidiasis of skin and nail (principal); R19.7 Diarrhea, unspecified
CPT/HCPCS: 36415; 80048; 87045; 87046

== ENCOUNTER → 2025-02-10 | Outpatient (CLI) | payer OTHER ==
[2025-02-11 04:43] LABS: Gliadin AB IgA, Deaminated Positive (Negative); Gliadin AB IgA, Unit 83.6 U/mL; Gliadin AB IgG, Deaminated Negative (Negative); Gliadin AB IgG, Unit <0.4 U/mL
== END | disposition home or self-care (01) ==
LOC: LABWHC1 14:52
DX: R19.7 Diarrhea, unspecified (principal)
CPT/HCPCS: 36415; 83516